=== PATIENT | female | born 1960 | race Caucasian/White ===

== ENCOUNTER 2016-06-04 10:32 | Emergency (ER) | payer MEDICARE, MEDICAID ==
[2016-06-04 12:05] VITALS: BP 120/65
--- NOTE | 2016-06-04 12:10 | UC ---
Throat Pain/Nasal Rhett HPI - HPI Summary HPI Summary: 3-4 days of cough and nasal drainage, no fevers, aching usual self - History of Current Complaint Chief Complaint: UCRespiratory Stated Complaint: SINUS,SORE THROAT Time Seen by Provider: 06/04/16 12:02 Hx Obtained From: Patient, Family/Help Desk Assistant Hx Last Menstrual Period: n/a ?: No Onset/Duration: Sudden Onset, Lasting Days - 3-4, Still Present Severity: Moderate Associated Signs & Symptoms: Positive: Nasal Discharge - Allergies/Home Medications Allergies/Adverse Reactions: Allergies Allergy/AdvReac Type Severity Reaction Status Date / Time No Known Allergies Allergy Verified 06/04/16 11:57 Home Medications: Home Medications Acetaminophen TAB* [Tylenol TAB*] 650 mg PO Q4H PRN 06/04/16 [History Confirmed 06/04/16] GuaiFENesin DM* [Robitussin DM*] 10 ml PO Q6H PRN 06/04/16 [History Confirmed ] LoraTADine TAB(NF) [Claritin TAB(NF)] 10 mg PO DAILY PRN 06/04/16 [History Confirmed 06/04/16] Pseudoephedrine TAB* [Sudafed TAB*] 30 mg PO Q4H PRN 06/04/16 [History Confirmed 06/04/16] Trospium Chloride [Trospium Chloride ER] 60 mg PO DAILY 06/04/16 [History Confirmed 06/04/16] busPIRone TAB* [Buspar TAB *] 15 mg PO TID 06/04/16 [History Confirmed 06/04/16] PMH/Surg Hx/FS Hx/Imm Hx Previously Healthy: No - deveolpment Disabilities Endocrine History Of: Reports: Thyroid Disease - Hyperparathyroidism, Nodules - Surgical History Surgical History: None Surgery Procedure, Year, and Place: ADRENAL GLAND REMOVED - Family History Known Family History: Positive: Other - Pt is unable to convey family history due to level cognitive function. - Social History Occupation: Disabled Lives: Assisted Living Alcohol Use: None Substance Use Type: None Smoking Status (MU): Never Smoked Tobacco - Immunization History Most Recent Influenza Vaccination: 02/05/16 Most Recent Tetanus Shot: 02/04/08 Review of Systems Constitutional: Negative Skin: Negative Eyes: Negative ENT: Nasal Discharge Respiratory: Cough Cardiovascular: Negative Gastrointestinal: Negative Genitourinary: Negative Motor: Negative Neurovascular: Negative Musculoskeletal: Negative Neurological: Negative Psychological: Negative All Other Systems Reviewed And Are Negative: Yes Physical Exam Triage Information Reviewed: Yes Appearance: No Pain Distress, Well-Nourished, Ill-Appearing - mild Vital Signs: Initial Vital Signs Temp 98.9 F 06/04/16 11:50 Pulse 69 06/04/16 11:50 Resp 16 06/04/16 11:50 BP 120/65 06/04/16 11:50 Pulse Ox 100 06/04/16 11:50 Vital Signs Reviewed: Yes Eye Exam: Normal Eyes: Positive: Conjunctiva Clear ENT Exam: Normal ENT: Positive: Normal ENT inspection, Hearing grossly normal, Pharynx normal, Nasal congestion, Nasal drainage, TMs normal. Negative: Pharyngeal erythema, Tonsillar swelling, Tonsillar exudate, Trismus, Muffled/hoarse voice Neck exam: Normal Neck: Positive: Supple, Nontender, No Lymphadenopathy Respiratory Exam: Normal Respiratory: Positive: Chest non-tender, Lungs clear, Normal breath sounds, No respiratory distress, No accessory muscle use Cardiovascular Exam: Normal Cardiovascular: Positive: RRR, No Murmur, Pulses Normal, Brisk Capillary Refill Musculoskeletal Exam: Normal Musculoskeletal: Positive: Strength Intact, ROM Intact, No Edema Neurological Exam: Normal Neurological: Positive: Alert, Muscle Tone Normal Psychological Exam: Normal Psychological: Positive: Normal Response To Family Skin Exam: Normal Throat Pain/Nasal Course/Dx - Course Assessment/Plan: flonase , tessalon, increase fluids, use otc mucinex and sudafed follow with pcp - Differential Dx/Diagnosis Differential Diagnosis/HQI/PQRI: Otitis Media, Pharyngitis, Sinusitis, URI Provider Diagnoses: Rhinosinusitis Discharge - Discharge Plan Condition: Stable Disposition: HOME Prescriptions: Benzonatate CAP* [Tessalon CAP*] 100 mg PO TID PRN #25 cap PRN Reason: Cough Fluticasone NASAL SPRAY 50MCG* [Flonase NASAL SPRAY 50MCG*] 2 spray BOTH NARES DAILY #1 btl Patient Education Materials: Cold Symptoms (ED), How to Use Nasal [place] (ED) Referrals: Maria Borja MD [Primary Care Provider] - If Needed
== END 2016-06-04 12:22 | disposition home or self-care (01) ==
LOC: UCCORT 10:32
DX: J32.9 Chronic sinusitis, unspecified (principal); R41.841 Cognitive communication deficit
CPT/HCPCS: 99212; G0463

== ENCOUNTER 2017-02-12 15:35 | Emergency (ER) | payer MEDICARE, MEDICAID ==
--- NOTE | 2017-02-12 18:48 | UC ---
Eye Complaint HPI - HPI Summary HPI Summary: 56 YEAR OLD FEMALE PRESENTS WITH COMPLAINS OF PAINFUL RIGHT EYE AND SORE THROAT. - History of Current Complaint Stated Complaint: EYE COMPLANT Time Seen by Provider: 02/12/17 18:48 Hx Obtained From: Patient Hx Last Menstrual Period: n/a Onset/Duration: Sudden Onset Severity Initially: Moderate Severity Currently: Moderate Pain Scale Used: 0-10 Numeric - 3 - Allergies/Home Medications Allergies/Adverse Reactions: Allergies Allergy/AdvReac Type Severity Reaction Status Date / Time No Known Allergies Allergy Verified 02/12/17 18:49 PMH/Surg Hx/FS Hx/Imm Hx Previously Healthy: Yes - Surgical History Surgical History: None Surgery Procedure, Year, and Place: ADRENAL GLAND REMOVED - Family History Known Family History: Positive: Other - Pt is unable to convey family history due to level cognitive function. - Social History Alcohol Use: None Substance Use Type: None Smoking Status (MU): Never Smoked Tobacco - Immunization History Most Recent Influenza Vaccination: 02/05/16 Most Recent Tetanus Shot: 02/04/08 Review of Systems Constitutional: Negative Skin: Negative Eyes: Negative ENT: Negative Respiratory: Negative Cardiovascular: Negative Gastrointestinal: Negative Genitourinary: Negative Motor: Negative Neurovascular: Negative Musculoskeletal: Negative Neurological: Negative Psychological: Negative All Other Systems Reviewed And Are Negative: Yes Physical Exam Triage Information Reviewed: Yes Vital Signs Reviewed: Yes Eye Exam: Normal ENT Exam: Normal Dental Exam: Normal Neck exam: Normal Neck: Positive: 1 Respiratory Exam: Normal Cardiovascular Exam: Normal Abdominal Exam: Normal Musculoskeletal Exam: Normal Neurological Exam: Normal Psychological Exam: Normal Skin Exam: Normal Eye Complaint Course/Dx - Differential Dx/Diagnosis Provider Diagnoses: right conjunctivitis. allergic rhinitis. sinusitis Discharge - Discharge Plan Condition: Stable Disposition: HOME Prescriptions: Amoxicillin PO (*) [Amoxicillin 500 MG CAP*] 500 mg PO TID #30 cap LoraTADine TAB(NF) [Claritin 10 MG TAB(NF)] 10 mg PO DAILY #30 tab Tobramycin/Dexameth OPTH.SUSP* [Tobradex 0.3-0.1%*] 1 drop RIGHT EYE Q6H #1 btl Patient Education Materials: Allergic Rhinitis (ED), Conjunctivitis (ED) Referrals: Maria Borja MD [Primary Care Provider] -
[2017-02-12 18:49] VITALS: BP 113/65
== END 2017-02-12 19:26 | disposition home or self-care (01) ==
LOC: UCCORT 15:35
DX: H10.31 Unspecified acute conjunctivitis, right eye (principal); J30.9 Allergic rhinitis, unspecified; J32.9 Chronic sinusitis, unspecified
CPT/HCPCS: 99212; G0463

== ENCOUNTER 2017-06-19 19:29 | Emergency (ER) | payer MEDICARE, MEDICAID ==
[2017-06-19 21:27] VITALS: BP 111/70
--- NOTE | 2017-06-19 22:14 | UC ---
Nausea/Vomiting/Diarrhea HPI - HPI Summary HPI Summary: 56 y/o female PMHX of OCD presents to the urgent care accompany by bakery worker conveyor line Shilpa Cox c/o 2 episode of vomiting and 3 episodes of diarrhea. Pt states diarrhea started last night w/ mild abdominal cramping pain relief w/ watery diarrhea. She was well and ate normally today last meal was at 1700pm. then she developed vomiting at 1930 and then another episode at 2030pm before coming here. Social workers states she ate a soup w/ rice. Pt is drinking fluids and urinating well. Denies fever, abdominal pain, SOB, chest pain, URI symptoms, blood in the stool or hematoemesis. Pt also denies eating outside, recent travel or taking ABxs. - History of Current Complaint Chief Complaint: UCAbdominalPain Stated Complaint: DIARRHEA, VOMITING Time Seen by Provider: 06/19/17 21:54 Hx Obtained From: Patient, Family/Fringe Knotter - bakery worker conveyor line Mrs Chava Cox Hx Last Menstrual Period: n/a ?: No Onset/Duration: Gradual Onset, Lasting Days - 1 day, Still Present, Worse Since - tonight Timing: Intermittent Episodes Lasting: Severity Initially: Mild Severity Currently: Mild Pain Intensity: 5 Pain Scale Used: 0-10 Numeric Location: Epigastric - caramping abdominal pain relief w/ diarrhea Character: Cramping Aggravating Factor(s): Food Alleviating Factor(s): Vomiting, Bowel Movement Vomiting Frequency: Every 1-2 hours - 2 episodes Nausea/Vomiting Duration: 0-12 hours Vomiting Characteristics: Nonbilious Diarrhea Presence: Yes Diarrhea Frequency: Every 3-4 hours Diarrhea Duration: 0-12 hours Diarrhea Characteristics: Watery - Risk Factors Influenza Risk Factors: Negative Surgical Obstruction Risk Factor(s): Negative - Allergies/Home Medications Allergies/Adverse Reactions: Allergies Allergy/AdvReac Type Severity Reaction Status Date / Time No Known Allergies Allergy Verified 06/19/17 21:27 Home Medications: Home Medications Topiramate TAB(*) [Topamax 25 MG tab] 25 mg PO BID 06/19/17 [History Confirmed 06/19/17] PMH/Surg Hx/FS Hx/Imm Hx Previously Healthy: Yes Endocrine History: Hypothyroidism Other Endocrine History: adrenal tumor GI/ History: Kidney Stones Other GI/ History: Over reactive bladder Psychological History: Anxiety, Depression Other Psychological History: OCD - Surgical History Surgical History: None Surgery Procedure, Year, and Place: ADRENAL GLAND REMOVED - Family History Known Family History: Positive: Unknown Family History: Pt is unable to convey family history due to level cognitive function. - Social History Occupation: Employed Part-time Lives: Residential Alcohol Use: None Substance Use Type: None Smoking Status (MU): Never Smoked Tobacco - Immunization History Most Recent Influenza Vaccination: 02/05/16 Most Recent Tetanus Shot: 02/04/08 Vaccination Up to Date: Yes Review of Systems Constitutional: Negative Skin: Negative Eyes: Negative ENT: Negative Respiratory: Negative Cardiovascular: Negative Gastrointestinal: Abdominal Pain - epigastric abdominal cramping pain, Vomiting , Diarrhea, Nausea Genitourinary: Negative Motor: Negative Neurovascular: Negative Musculoskeletal: Negative Neurological: Negative Psychological: Negative Is Patient Immunocompromised?: No All Other Systems Reviewed And Are Negative: Yes Physical Exam - Summary Physical Exam Summary: Vital Signs Reviewed: Yes General:Patient is a well developed and nourished female who is sitting comfortable in the examining table. Patient is not in any acute respiratory distress. Eyes: Positive: Conjunctiva Clear - PERRLA, EOMI, fundi grossly normal ENT: Positive: Normal ENT inspection, Hearing grossly normal, Pharynx normal, RT external ear canal impacted w/ cerumen unable to visualize TM, LF external canal clear, LF TM WNL. Neck: Positive: Supple, Nontender, No Lymphadenopathy Respiratory: Positive: Chest non-tender, Lungs clear, Normal breath sounds, No respiratory distress Cardiovascular: Positive: RRR,S1 and S2 present, No Murmur, Pulses Normal, Brisk Capillary Refill Abdomen Description: Positive: Nontender, Other: - Abd: Flat with no distention. No surface trauma, scars, incisions. hyperactive bowel sounds present in all four quadrants. No tenderness, guarding, rigidity to palpation. No masses palpated, no pulsation in epigastric area. No organomegaly. Negative Russell signs. No periumbilical tenderness. No rebound in the lower quadrants. NT over McBurneys point. Good femoral pulses bilaterally. No hernia noted. No CVAT bilaterally Musculoskeletal: Positive: Strength Intact, ROM Intact, No Edema,FROM in all major joints, no edema, no cyanosis or clubbing. Neuro: Alert and oriented x 3. No acute neurological deficits. Speech is normal. Psychological: WNL Skin: Dry and warm Triage Information Reviewed: Yes Vital Signs: Initial Vital Signs Temp 98.4 F 06/19/17 21:23 Pulse 66 06/19/17 21:23 Resp 16 06/19/17 21:23 BP 111/70 06/19/17 21:23 Pulse Ox 100 06/19/17 21:23 Naus/Vom/Diarrhea Course/Dx - Course Course Of Treatment: 56 y/o female PMHX of OCD presents to the urgent care accompany by bakery worker conveyor line Shilpa Cox c/o 2 episode of vomiting and 3 episodes of diarrhea. Pt states diarrhea started last night w/ mild abdominal cramping pain relief w/ watery diarrhea. She was well and ate normally today last meal was at 1700pm. then she developed vomiting at 1930 and then another episode at 2030pm before coming here. Social workers states she ate a soup w/ rice. Pt is drinking fluids and urinating well. Denies fever, abdominal pain, SOB, chest pain, URI symptoms, blood in the stool or hematoemesis. Pt also denies eating outside, recent travel or taking ABxs.Hx obtained. PE: WNL. Pt w/ probably a viral gastroenteritis and RT exteranal ear canal impacted w/ cerumen. Pt given Zofran PO at the clinic for votiming. Pt tolerated well medication and was dispense 1 tab home in case needed overnight. Pt Rx same medication.Also Rx Debrox otic drops to soften cerumen. Pt and bakery worker conveyor line advised to increase fluid intake, eat soft meals, rest. However if symptoms worsen and abdominal pain develops to go Immediately to the ER for further management. D/C instructions explained . crop or grain farmworker and PT understood and agreed w/ plan of care. Pt left the clinic ambulating, A&OX3 - Differential Dx/Diagnosis Differential Diagnoses - Female: Appendicitis, Gerd, Gastroenteritis (Viral), Gastroenteritis (Bacterial), Vomiting, Diarrhea, Colitis, Peptic Ulcer Disease, Gastritis Provider Diagnoses: 1- Viral gastroenteriritis. 2-Acute nausea and vomiting. 3 -Diarrhea. 4-RT external ear canal w/ cerumen impaction Condition At Discharge: Stable Discharge - Sign-Out/Discharge Documenting (check all that apply): Discharge - Discharge Plan Condition: Stable Disposition: HOME Prescriptions: Carbamide Peroxide 6.5% OTIC* [DEBROX 6.5% Otic*] 5 drop RIGHT EAR BID #1 bottle Ondansetron ODT TAB* [Zofran 4 MG Odt TAB*] 4 mg PO Q6H PRN #10 tab.odt PRN Reason: Vomiting Patient Education Materials: Gastroenteritis (ED), Acute Nausea and Vomiting ( ED) Referrals: Maria Borja MD [Primary Care Provider] - 2 Days Additional Instructions: 1-Please take Zofran PO as directed to alleviate vomiting. Increase fluid intake w/ Gatorade and Pedialyte OTC 1 spoon q4hrs prn. Eat soft meals, nothing heavy 2- If Pt develops fever or abdominal pain w/ recurrent episodes of diarrhea and vomiting please take PT to the ER, otherwise f/u with your PCP if diarrhea not resolving in 2-3 days 3- Please apply Debrox otic drops as directed to soften cerumen of Rt external ear canal - Billing Disposition and Condition Condition: STABLE Disposition: HOME
[2017-06-19] MEDS ORDERED: Ondansetron ODT TAB* 4 MG PO ONE (22:15)
[2017-06-19] MEDS ORDERED: Ondansetron ODT TAB* 4 MG ONE (22:25)
== END 2017-06-19 22:49 | disposition home or self-care (01) ==
LOC: UCCORT 19:29
DX: A08.4 Viral intestinal infection, unspecified (principal); R11.2 Nausea with vomiting, unspecified; R19.7 Diarrhea, unspecified
CPT/HCPCS: 99212; A9270-GY; G0463

== ENCOUNTER 2018-06-26 15:37 | Emergency (ER) | payer MEDICARE, MEDICAID ==
--- OUTSIDE RECORDS SUMMARY | 2018-06-26 16:45 | XMS REPORT | Continuity of Care Document ---
:1960 External Reference #:[id number] Author Name Matt Melo M.D. Address [address] [facility] [address] [place] [address] Care Team Providers Name Role Phone Arianne Garcia MD Care Team Information Technology Professional Unavailable Arianne Garcia MD Primary Care Physician Unavailable Payers Date Identification Numbers Payment Provider Subscriber Policy Number: [id number] Medicare Brianda Pete PayID: [id number] [address] [place] [address] Policy Number: [id number] Medicaid Brianda Pete PayID: [id number] [address] [place] [address] Advance Directives Description No Information Available Problems Date Description Provider Status Onset: 02/09/2011 Neutropenia Annemarie Mejía M.D. Active Onset: 02/09/2011 Mental retardation Annemarie Mejía M.D. Active Onset: 08/19/2014 Hyperparathyroidism Annemarie Mejía M.D. Active Onset: 06/29/2017 Adult health examination Maria Borja M.D. Active Onset: 06/29/2017 Screening mammography Maria Borja M.D. Active Onset: 06/29/2017 Screening for malignant neoplasm of Maria Borja M.D. Active cervix Onset: 06/29/2017 Screening for cardiovascular system Maria Borja M.D. Active disease Onset: 06/29/2017 Atopic dermatitis Maria Borja M.D. Active Onset: 06/29/2017 Immunization Maria Borja M.D. Active Onset: 08/02/2017 Allergic rhinitis due to pollen Tanya Rouse MD, PHD Active Onset: 08/02/2017 Asthma without status asthmaticus Tanya Rouse MD, PHD Active Onset: 08/02/2017 Cough Tanya Rouse MD, PHD Active Onset: 08/02/2017 Dyspnea Tanya Rouse MD, PHD Active Onset: 08/02/2017 Impacted cerumen Tanya Rouse MD, PHD Active Onset: 08/02/2017 Cementum caries Tanya Rouse MD, PHD Active Onset: 08/02/2017 Acute sinusitis Tanya Rouse MD, PHD Active Onset: 01/22/2018 Taking medication Tanya Rouse MD, PHD Active Onset: 01/22/2018 Developmental language disorder Tanya Rouse MD, PHD Active Onset: 01/22/2018 Needs moderate assistance Tanya Rouse MD, PHD Active Onset: 01/22/[address] [facility] Tnaya Rouse MD, PHD Active of occurrence of the external cause Onset: 02/15/2018 Acute vaginitis Tanya Rouse MD, PHD Active Onset: 02/15/2018 Dysuria Tanya Rouse MD, PHD Active Onset: 02/15/2018 Increased frequency of urination Tanya Rouse MD, PHD Active Onset: 04/09/2018 Anxiety state Arianne Garcia MD Active Onset: 04/09/2018 Primary hyperparathyroidism Arianne Garcia MD Active Onset: 04/09/2018 Major depressive disorder, single Arianne Garcia MD Active episode, unspecified Onset: 06/11/2018 Kidney stone Matt Melo M.D. Active Onset: 06/11/2018 Nocturia Matt Melo M.D. Active Onset: 06/11/2018 Acquired renal cystic disease Matt Melo M.D. Active Family History Date Family Member(s) Observation Comments Father due to Pancreatic Cancer () Mother due to Kidney Disease () First Sister Diabetes First Sister due to Stroke () First Sister Chronic Obstructive Pulmonary Disease (COPD) Social History Type Date Description Comments Sex Unknown Lives With [facility] [employer] Occupation Currently Working Relations Liaison Occupation Disabled Hand Dominance Right-handed ETOH Use Never used alcohol Tobacco Use Start: Unknown Patient has never smoked Smoking Status Reviewed: 06/03/18 Patient has never smoked Allergies, Adverse Reactions, Alerts Description No Known Drug Allergies Medications Medication Date Status Form Strength Qnty SIG Indications Ordering Provider Hydrocortisone 04/09 Active Cream 1% apply to Jose, affected MD Arianne area three times a day prn [id number] 03/04 Active Chewtabs 1mg 90uni 1 tab by ts mouth every Tanya, day andria HARTLEY, PHD Triple 10/16 Active Ointment 5-400-500 42gm apply to Jose, 0 affected MD Arianne area 2-4x daily as needed Maalox Max 08/14 Active Suspension 400-400-4 355ml 5-15 Huong, 0mg/5ML milliliters Maria, every 6 M.D. hours for upset stomach Claritin 08/14 Active Capsules 10mg 30cap 1 by mouth Gagen, s every day as Puja needed e, MS, allergy [employer], symptoms CNM Nebulizer 08/02 Active Kit 1unit Reusable kit R06.02 Padma, Kit/Tubing/Mout /2017 s 1 twice a Tanya, hpiece day short of , PHD breath. r06.02 Xylimelts 08/02 Active Disk 500mg 90uni 1 each by K02.7 ts mouth three Tanya, times a day , PHD after meals Folic Acid 07/26 Active Tablets 1mg 90tab 1 tab PO Q , s Daily Frederic Sifuentes Tab-A-Apoorva 04/23 Active Tablets 30tab 1 by mouth Padma, s every day MD Tanya, PHD Acetaminophen Active Tablets 325mg 30tab i-ii by Huong, s mouth every Maria, 6 hours as M.D. needed Robitussin DM Active Syrup 100-10mg/ 355ml 5mL prn Huong, 5ML cough Frederic Sifuentes Kaopectate Active Suspension 262mg/15M 240ml 2 tablespoon , L by mouth Maria, after each M.D. loose bm as needed Miralax Active Powder 30uni mix one F80.9 [place] ts capefull Tanya, 17gms in 8 , PHD oz of fluid daily Z74.1 R19.5 Topiramate Active Tab 25mg 1 by mouth Unknown three times a day Trospium Chloride Active Caps ER 24HR 60mg 1 by mouth Unknown ER every day Albuterol Sulfate Active Nebulizer 1.25mg/ 1 vial inhaled Unknown 3ML every 4 hours as needed for shortness of breath and or wheezing Fluvoxamine ER Active Capsules 150mg 1 by mouth at Unknown bedtime Vitamin D3 Active Capsules 5000Uni 30c Take 1 Capsule [place], t aps By Mouth Daily MD Tanya, PHD Vitamin D3 03/07/2018 - Hx Capsules 5000Uni 30c 1 by mouth [place], Maximum Strength 04/03/2018 t aps every day MD Tanya, PHD Keflex 02/15/2018 - Hx Capsules 500mg 20c 1 cap by mouth R3 [place], 02/25/2018 aps twice a day 0. Tanya, 0 , PHD Diflucan 02/15/2018 - Hx Tablets 150mg 2ta 1 tab oral for N7 [place], 04/09/2018 bs yeast. repeat 6. Tanya, in 1 week. 0 , PHD Triple Antibiotic 10/16/2017 - Hx Ointment 1Tu apply to [facility], 10/16/2017 be affected area Maria, 2-4x daily prn M.D. Triple Antbiotic 08/14/2017 - Hx Ointment 1Tu apply to area [facility], 10/16/2017 be 2-4x a day as Maria, needed M.D. Albuterol Sulfate 08/14/2017 - Hx Nebulizer 1.25mg/ 75u 1 vial inhaled R0 [facility], 10/24/2017 3ML nit every 4 hours 6. Maria, s as needed 02 M.D. wheezing or sob Mucinex 08/02/2017 - Hx Tablets ER 600mg 30t 1 tab by mouth J3 [place], 08/14/2017 12HR abs twice a day 0. Tanya, congestion 1 , PHD take with lots of fluids 12 Hour Nasal 08/02/2017 - Hx Solution 0.05% 15m 2 sprays J0 Padma, Relief [place] 08/05/2017 l intranasal 1. Tanya, twice a day 90 , PHD painful pressure Albuterol Sulfate 08/02/2017 - Hx Nebulizer (2.5mg/ 75m 1 vial by R0 Padma, 08/14/2017 3ML) l nebulizer 6. Tanya, 0.083% twice a day 02 , PHD when congested Benadryl Allergy 08/02/2017 - Hx Capsules 25mg 30c 1 cap by mouth J3 [place], 08/14/2017 aps at bedtime as 0. Tanya, needed in 1 , PHD allergy season Vitamin B12 07/26/2017 - Hx Tablets ER 1000mcg 90t 1 tab by mouth Huong, 10/24/2017 abs every daily Frederic Sifuentes Vitamin D3 1000Iu 04/19/2017 - Hx 60u 2 by mouth [place], Softgel (SD) 03/07/2018 nit rhys Martínez MD, PHD Neosporin 03/08/2017 - Hx Ointment 3.5-400 14. apply to area [facility], [facility] 06/29/2017 -5000 200 qid prn castillo Davis DO Loratadine 02/13/2017 - Hx Tablets 10mg 30t Take 1 Tablet J3 Huong, 08/03/2017 abs By Mouth Daily 0. Maria, as Needed For 9 M.D. Allergy Symptoms Vitamin D3 1000Iu 09/19/2016 - Hx 30u Take 1 Capsule Huong, Softgel (SD) 11/01/2016 nit By Mouth Daily rhys Sifuentes M.D. Clotrimazole 06/23/2016 - Hx Cream 1% 30g apply to B3 [facility], 02/13/2017 m affected area 5. Maria, twice a day 4 M.D. Vitamin D3 High 04/23/2015 - Hx Capsules 1000Uni 30c 1 by mouth Huong, Potency 06/29/2017 t aps every day Frederic Sifuentes [facility] Vitamin D3 12/26/2010 - Hx Capsules 1000Uni 30c 1 by mouth Mejía , 06/22/2015 t aps every day MD Annemarie Fluoxetine HCL - Hx Capsules 10mg 30c 1 po qd Ayanna, 05/07/2015 aps MD Annemarie Buspirone HCL - Hx Tablets 30mg 60t 1 PO bid Ayanna, 04/09/2018 abs MD Annemarie Trospium Chloride - Hx Caps ER 24HR 60mg 30c 1 by mouth Huong , ER 10/24/2017 aps every day Frederic Sifuentes Sulfamethoxazole/ - Hx Tablets 800-160 14t 1 by mouth Unknown Trimethoprim DS Unknown mg abs twice a day X 10 Days Cephalexin - Hx Capsules 500mg 14c 1 cap by mouth Unknown Unknown aps twice a day X 10 Days Fluoxetine HCL - Hx Capsules 20mg 1 by mouth Ayanna, 06/22/2015 every day Frederic Sharpe Fluoxetine HCL - Hx Capsules 40mg 1 by mouth Unknown 06/29/2017 every day Claritin - Hx Capsules 10mg 30c 1 by mouth Huong, 08/14/2017 aps every day for Maria, 30 days and M.D. then prn allergy symptoms Maalox/Mylanta - Hx 1 tsp po q4h Unknown 08/14/2017 prn c/o stomach upset Milk Of Magnesia - Hx Suspension 400mg/5 1 tbsp as Unknown 08/14/2017 ML needed q4h prn for constipation Amoxicilin - Hx take one 3x Unknown 03/08/2017 daily Neosporin - Hx apply to open Unknown 08/14/2017 area four times a day as needed Sudafed - Hx Tablets 30mg 30t 1 tabs by Huong, 08/14/2017 abs mouth every 4 Maria, hours as M.D. needed cold symptoms Hydrocortisone - Hx Cream 1% 28. apply to skin Huong, 08/14/2017 35u rash sparingly Maria, nit three times a M.D. s day as needed Tablets - Hx Tablets ER 1000mcg 1 by mouth Unknown Unknown every day Bismuth - Hx Chewtabs 262mg 1 tab four Unknown Subsalicylate Unknown times a day x 14 days Hydrocortisone - Hx Cream 1% apply to skin Unknown Plus 04/09/2018 as needed. Vitamin B-12 - Hx Liquid 1000mcg 450 15 milliliters Padma, 03/04/2018 /15ML ml by mouth every magdiel Martínez MD, PHD Fluvoxamine - Hx Tablets 100mg 1 tablet at Unknown Maleate 04/09/2018 bedtime 1 Immunizations CPT Code Status Date Vaccine Lot # [id number] Given 01/16/2018 Influenza,Unspecified 96053 Given 06/29/2017 Pneumovax Injection [id number] 02112 Given 06/29/2017 Tdap injection [id number] 81488 Given 12/13/2016 Influenza Virus Vaccine, Quadrivalent, Slit Virus, Im Use 34751 Given 12/13/2016 Influenza Virus Vaccine, Quadrivalent, Slit Virus, Im Use 01593 Given 06/23/2016 Pneumococcal Conjugate Vaccine 13 Valent For [id number] Intramuscular Use 39865 Given 02/05/2016 Influenza Virus Vaccine Split Virus Use For Individual 3Yr Older 36508 Given 02/01/2015 Influenza Virus Vaccine, Split Virus, 6-35 Months Age Intramuscul 37819 Given 04/06/2014 flu vaccination 44162 Given 12/11/2011 flu vaccination 94292 Given 11/30/2008 flu vaccination 64956 Given 02/04/2008 Tdap injection 72584 Given 02/04/2008 flu vaccination Vital Signs Date Vital Result Comment 06/11/2018 9:07am BP Systolic 112 mmHg BP Diastolic 73 mmHg Body Temperature 97.7 F Heart Rate 73 /min Respiratory Rate 18 /min Weight 159.25 lb O2 % BldC Oximetry 99 % Pain Level 0 05/29/2018 8:48am BP Systolic 133 mmHg BP Diastolic 80 mmHg Body Temperature 99.5 F Heart Rate 69 /min Respiratory Rate 16 /min Weight 162.00 lb O2 % BldC Oximetry 95 % Pain Level 0 04/17/2018 2:50pm BP Systolic Sitting Left Arm 106 mmHg BP Diastolic Sitting Left Arm 69 mmHg Body Temperature 98.1 F Heart Rate 63 /min Height 62.6 inches 5'2.60" Weight 163.00 lb BMI (Body Mass Index) 29.2 kg/m2 BSA (Body Surface Area) 1.76 m2 [place] body weight in kilograms 51 kg O2 % BldC Oximetry 100 % 04/09/2018 8:43am BP Systolic Sitting Right Arm 115 mmHg BP Diastolic Sitting Right Arm 71 mmHg Body Temperature 98.6 F Heart Rate 66 /min Respiratory Rate 16 /min Height 62.6 inches 5'2.60" Weight 161.00 lb BMI (Body Mass Index) 28.9 kg/m2 BSA (Body Surface Area) 1.76 m2 [place] body weight in kilograms 51 kg O2 % BldC Oximetry 97 % 02/15/2018 2:04pm BP Systolic 105 mmHg BP Diastolic 67 mmHg Body Temperature 98.3 F Heart Rate 59 /min Respiratory Rate 16 /min Height 62.6 inches 5'2.60" Weight 161.00 lb BMI (Body Mass Index) 28.9 kg/m2 BSA (Body Surface Area) 1.76 m2 [place] body weight in kilograms 51 kg O2 % BldC Oximetry 98 % 01/22/2018 1:23pm BP Systolic 103 mmHg BP Diastolic 65 mmHg Body Temperature 97.8 F Heart Rate 60 /min Respiratory Rate 18 /min Height 62.6 inches 5'2.60" Weight 155.00 lb BMI (Body Mass Index) 27.8 kg/m2 BSA (Body Surface Area) 1.73 m2 [place] body weight in kilograms 51 kg O2 % BldC Oximetry 99 % Ora 11/19/2017 8:48am BP Systolic 113 mmHg BP Diastolic 70 mmHg Body Temperature 97.6 F Heart Rate 60 /min Respiratory Rate 18 /min Height 62.6 inches 5'2.60" Weight 153.00 lb BMI (Body Mass Index) 27.4 kg/m2 BSA (Body Surface Area) 1.72 m2 [place] body weight in kilograms 51 kg O2 % BldC Oximetry 99 % Ra Pain Level 0 11/16/2017 9:15am BP Systolic 112 mmHg BP Diastolic 70 mmHg Body Temperature 96.8 F Heart Rate 60 /min Respiratory Rate 18 /min Height 62.6 inches 5'2.60" Weight 154.00 lb BMI (Body Mass Index) 27.6 kg/m2 BSA (Body Surface Area) 1.72 m2 [place] body weight in kilograms 51 kg O2 % BldC Oximetry 98 % 10/24/2017 2:58pm BP Systolic Sitting Right Arm 106 mmHg BP Diastolic Sitting Right Arm 62 mmHg Body Temperature 97.5 F Height 62.6 inches 5'2.60" Weight 155.25 lb BMI (Body Mass Index) 27.9 kg/m2 BSA (Body Surface Area) 1.73 m2 [place] body weight in kilograms 51 kg 09/19/2017 3:48pm BP Systolic 110 mmHg BP Diastolic 64 mmHg Body Temperature 97.2 F Heart Rate 62 /min Respiratory Rate 16 /min Height 62.5 inches 5'2.50" Weight 157.00 lb BMI (Body Mass Index) 28.3 kg/m2 BSA (Body Surface Area) 1.74 m2 [place] body weight in kilograms 51 kg O2 % BldC Oximetry 99 % 08/14/2017 1:43pm BP Systolic Sitting Left Arm 102 mmHg BP Diastolic Sitting Left Arm 74 mmHg Heart Rate 58 /min Respiratory Rate 14 /min Weight 158.50 lb O2 Saturation Level with Exercise 99 % 08/02/2017 1:49pm BP Systolic 108 mmHg BP Diastolic 66 mmHg Height 62.5 inches 5'2.50" Weight 157.00 lb BMI (Body Mass Index) 28.3 kg/m2 BSA (Body Surface Area) 1.74 m2 [place] body weight in kilograms 51 kg 07/09/2017 8:39am BP Systolic 99 mmHg BP Diastolic 62 mmHg Body Temperature 98.2 F Heart Rate 54 /min Respiratory Rate 16 /min Height 62.5 inches 5'2.50" Weight 158.50 lb BMI (Body Mass Index) 28.5 kg/m2 BSA (Body Surface Area) 1.74 m2 [place] body weight in kilograms 51 kg O2 % BldC Oximetry 99 % On R/A Pain Level 0 06/29/2017 9:54am BP Systolic 102 mmHg BP Diastolic 60 mmHg Body Temperature 96.8 F Heart Rate 50 /min Height 62.5 inches 5'2.50" Weight 163.00 lb BMI (Body Mass Index) 29.3 kg/m2 BSA (Body Surface Area) 1.76 m2 [place] body weight in kilograms 51 kg O2 % BldC Oximetry 97 % 03/08/2017 9:27am BP Systolic 110 mmHg BP Diastolic 68 mmHg Body Temperature 98.4 F Heart Rate 58 /min Weight 164.12 lb O2 % BldC Oximetry 98 % 02/13/2017 3:07pm BP Systolic Sitting Right Arm 110 mmHg BP Diastolic Sitting Right Arm 72 mmHg Body Temperature 98.3 F Heart Rate 60 /min Weight 167.25 lb O2 % BldC Oximetry 98 % 11/06/2016 8:58am BP Systolic 122 mmHg BP Diastolic 69 mmHg Body Temperature 96.9 F Heart Rate 54 /min Weight 173.12 lb O2 % BldC Oximetry 100 % 11/01/2016 4:49pm BP Systolic Sitting Left Arm 122 mmHg BP Diastolic Sitting Left Arm 76 mmHg Body Temperature 98.0 F Height 62 inches 5'2" Weight 173.00 lb BMI (Body Mass Index) 31.6 kg/m2 BSA (Body Surface Area) 1.80 m2 [place] body weight in kilograms 50 kg 06/23/2016 9:03am BP Systolic Sitting Left Arm 124 mmHg BP Diastolic Sitting Left Arm 80 mmHg Body Temperature 98.0 F Heart Rate 64 /min Respiratory Rate 16 /min Height 62 inches 5'2" Weight 184.25 lb BMI (Body Mass Index) 33.7 kg/m2 BSA (Body Surface Area) 1.85 m2 [place] body weight in kilograms 50 kg 05/08/2016 11:03am BP Systolic 125 mmHg BP Diastolic 75 mmHg Body Temperature 97.4 F Heart Rate 57 /min Respiratory Rate 20 /min Weight 191.25 lb O2 % BldC Oximetry 985 % 03/02/2016 3:10pm BP Systolic 135 mmHg BP Diastolic 80 mmHg Body Temperature 98.1 F Heart Rate 63 /min Respiratory Rate 20 /min Weight 195.38 lb O2 % BldC Oximetry 96 % 06/22/2015 1:40pm BP Systolic Sitting Right Arm 118 mmHg BP Diastolic Sitting Right Arm 78 mmHg Body Temperature 98.1 F Heart Rate 60 /min Respiratory Rate 19 /min Weight 188.00 lb 05/07/2015 10:14am BP Systolic Sitting Left Arm 114 mmHg BP Diastolic Sitting Left Arm 68 mmHg Heart Rate 60 /min Respiratory Rate 20 /min Height 62 inches 5'2" Weight 174.00 lb BMI (Body Mass Index) 31.8 kg/m2 BSA (Body Surface Area) 1.80 m2 08/19/2014 2:47pm BP Systolic Sitting Left Arm 114 mmHg BP Diastolic Sitting Left Arm 66 mmHg Heart Rate 64 /min Respiratory Rate 18 /min Height 62 inches 5'2" Weight 171.00 lb BMI (Body Mass Index) 31.3 kg/m2 BSA (Body Surface Area) 1.79 m2 05/05/2014 9:05am BP Systolic 118 mmHg BP Diastolic 70 mmHg Heart Rate 64 /min Respiratory Rate 18 /min Height 62 inches 5'2" Weight 169.00 lb BSA (Body Surface Area) 1.78 m2 04/06/2014 1:13pm BP Systolic 118 mmHg BP Diastolic 50 mmHg Heart Rate 64 /min Respiratory Rate 18 /min Height 62 inches 5'2" Weight 174.00 lb 09/02/2013 9:02am BP Systolic 116 mmHg BP Diastolic 70 mmHg Heart Rate 74 /min Height 62 inches 5'2" Weight 167.00 lb 03/03/2013 9:04am BP Systolic 104 mmHg BP Diastolic 58 mmHg Heart Rate 72 /min Respiratory Rate 18 /min Height 62 inches 5'2" Weight 173.00 lb 04/09/2012 11:42am BP Systolic 104 mmHg BP Diastolic 64 mmHg Body Temperature 98.7 F Heart Rate 68 /min Height 62 inches 5'2" Weight 164.00 lb 02/27/2012 9:01am BP Systolic 116 mmHg BP Diastolic 72 mmHg Heart Rate 68 /min Respiratory Rate 18 /min Height 62 inches 5'2" Weight 169.00 lb 07/17/2011 2:55pm BP Systolic 104 mmHg BP Diastolic 58 mmHg Height 62 inches 5'2" Weight 154.00 lb 04/12/2011 8:59am BP Systolic 100 mmHg BP Diastolic 66 mmHg Heart Rate 60 /min Height 62 inches 5'2" Weight 154.00 lb 02/09/2011 11:28am BP Systolic 110 mmHg BP Diastolic 60 mmHg Heart Rate 61 /min Respiratory Rate 18 /min Height 62 inches 5'2" Weight 152.00 lb Results Test Date Facility Test Result H/L Range Note Urine Dipstick 06/11/2018 [facility] Color yellow Yellow Ua Clarity clear Clear Ua Leuko neg Negative Ua Nitrite neg Negative Ua Urobilinogen 0.2 0.2 - 1.0 E.U./dL Ua Protein neg Negative Ua PH 6.5 6.5-7.5 Ua Blood neg Negative Ua Specific [place] 1.015 1.010-1.030 Ua Ketones neg Negative Ua Bilirubin neg Negative Ua Glucose neg Negative CBS W/Automated Diff 05/15/2018 [facility] White Blood 3.9 K/uL N 3.1-10.[address] [place] [address] [phone] Red Blood Count 4.41 M/uL N 3.90-5.40 Hemoglobin 13.6 gm/dL N 11.6-15.8 Hematocrit 41.6 % N 36.0-46.1 Mean Cell Volume 94.3 fl N 80.9-99.0 Mean Corpuscular HGB 30.8 pg N 25.9-32.7 Mean Corpuscular HGB Conc 32.7 g/dL N 30.8-34.3 Platelet Count 172 K/uL N 155-360 Red Cell Distri Width SD 44.5 fl N 36-47 Red Cell Distri Width %CV 13.2 % N 11.7-14.4 Mean Platelet Volume 13.1 fL High 8.9-12.4 Neut% 33.6 % Low 40.4-72.8 Lymph % 29.6 % N 20.0-42.0 [place] % 16.2 % High 4.3-13.2 Eo% 19.6 % High 0.0-6.6 Bas% 1.0 % N 0.0-1.1 Neut# 1.30 K/uL Low 1.8-7.0 Lymph # 1.15 K/uL N 1.0-4.0 [place] # 0.63 K/uL N 0.3-0.9 Eos # 0.76 K/uL High 0.0-0.5 Baso # 0.04 K/uL N 0.0-0.1 Affirm 04/17/2018 [facility] Trichomonas Negative [Negative] [address] [place] [address] [phone] Gardnerella vaginalis Negative [Negative] Natalie species Negative [Negative] 3 Genital Culture W/ 02/15/2018 [facility] Gram Stain GRAM STAIN [place] 4, [address] <SEE NOTE> [place] [address] [phone] Gram Stain FEW GR POS. BACI <SEE NOTE> 6 Gram Stain FEW GRAM VARIABL <SEE NOTE> 7 Gram Stain RARE CURVED GRAM <SEE NOTE> 8 Gram Stain MODERATE GRAM PO <SEE NOTE> 9 Gram Stain RARE WHITE BLOOD <SEE NOTE> 10 Genital Culture GENITAL LELE Ua RFX Micro & Culture 02/15/2018 [facility] Urine Color YELLOW Yellow II [address] [place] [address] [phone] Urine Clarity SL CLOUDY Clear Urine Glucose - Dipstick NEGATIVE mg/dL Negative Urine Bilirubin - Dipstick NEGATIVE Negative Urine Ketone NEGATIVE mg/dL Negative Urine Specific [place] <=1.005 Low 1.010-1.030 Urine Blood TRACE Negative Urine PH 6.5 N 6.5-7.5 Urine Protein - Dipstick NEGATIVE mg/dL Negative Urine Urobilinogen - Dipstick 0.2 E.U./dL N 0.2-1.0 Urine Nitrite - Dipstick NEGATIVE Negative Urine Leuk Esterase LARGE Abnormal Negative Urine RBC 0-2 rbc/hpf 0-2 Urine WBC > 50 wbc/hpf High 0-7 Urine Epithelial Cells VERY FEW /lpf None Seen Urine Bacteria VERY FEW None Seen Urine Culture 02/15/2018 [facility] Urine Culture MIXED URETHRAL F [address] [facility] <SEE NOTE> [place], [place] [id number] [phone] Quantity 10,000 - 100,000 <SEE NOTE> 12 Comprehensive Metabolic 11/05/2017 [facility] Glucose 75 mg/dL N 74-106 13 Panel [address] [place] [address] [phone] BUN 30 mg/dL High 7-18 Creatinine 1.2 mg/dL N 0.6-1.3 Glom Filtration Rate, Estimate 49 mL/min >60 If 59 mL/min >60 14 BUN/Creat 25.0 ratio Sodium 142 mmol/L N 136-145 Potassium 4.3 mmol/L N 3.5-5.1 Chloride 109 mmol/L High 98-107 Carbon Dioxide 25 mmol/L N 21-32 Anion Gap 8 mEq/L N 8-16 Calcium 9.0 mg/dL N 8.5-10.1 Total Protein 7.5 g/dL N 6.4-8.2 Albumin 3.7 g/dL N 3.4-5.0 Globulin 3.8 g/dL N 1.9-4.3 Alb/Glob 1.0 ratio Bilirubin,Total 0.4 mg/dL N 0.2-1.0 Sgot/Ast 25 U/L N 15-37 SGPT/Alt 26 U/L N 12-78 Alkaline Phosphatase 58 U/L N 45-117 Vitamin B12 And 11/05/2017 [facility] Vitamin B12 867 pg/mL N 193-986 Folate [address] [place] [address] [phone] Folic Acid > 20.0 ng/mL High 3.1-17.5 Iron-Tibc-%Sat 11/05/2017 [facility] Serum Iron 71 g/dL N 50-[address] [place] [address] [phone] Total Iron Binding Capacity 238 g/dL Low 250-450 Transferrin %Saturation 30 % N 12-57 CBS W/Automated Diff 11/05/2017 [facility] White Blood 3.5 K/uL N 3.1-10.[address] [place] [address] [phone] Red Blood Count 4.29 M/uL N 3.90-5.40 Hemoglobin 12.8 gm/dL N 11.6-15.8 Hematocrit 39.9 % N 36.0-46.1 Mean Cell Volume 93.0 fl N 80.9-99.0 Mean Corpuscular HGB 29.8 pg N 25.9-32.7 Mean Corpuscular HGB Conc 32.1 g/dL N 30.8-34.3 Platelet Count 160 K/uL N 155-360 Red Cell Distri Width SD 43.8 fl N 3-47 Red Cell Distri Width %CV 13.2 % N 11.7-14.4 Mean Platelet Volume 12.9 fL High 8.9-12.4 Neut% 37.3 % Low 40.4-72.8 Lymph % 37.6 % N 20.0-42.0 [place] % 17.3 % High 4.3-13.2 Eo% 5.5 % N 0.0-6.6 Bas% 2.3 % High 0.0-1.1 Neut# 1.29 K/uL Low 1.8-7.0 Lymph # 1.30 K/uL N 1.0-4.0 [place] # 0.60 K/uL N 0.3-0.9 Eos # 0.19 K/uL N 0.0-0.5 Baso # 0.08 K/uL N 0.0-0.1 CBS W/Automated 07/02/2017 [facility] White Blood 2.8 K/uL Low 3.1-10.7 [address] [place] [address] [phone] Red Blood Count 4.23 M/uL N 3.90-5.40 Hemoglobin 12.8 gm/dL N 11.6-15.8 Hematocrit 39.5 % N 36.0-46.1 Mean Cell Volume 93.4 fl N 80.9-99.0 Mean Corpuscular HGB 30.3 pg N 25.9-32.7 Mean Corpuscular HGB Conc 32.4 g/dL N 30.8-34.3 Platelet Count 148 K/uL Low 155-360 Red Cell Distri Width SD 44.9 fl N 3-47 Red Cell Distri Width %CV 13.6 % N 11.7-14.4 Mean Platelet Volume 13.6 fL High 8.9-12.4 Neut% 23.9 % Low 40.4-72.8 Lymph % 39.3 % N 20.0-42.0 [place] % 21.8 % High 4.3-13.2 Eo% 11.8 % High 0.0-6.6 Bas% 3.2 % High 0.0-1.1 Neut# 0.67 K/uL Low 1.8-7.0 Lymph # 1.10 K/uL N 1.0-4.0 [place] # 0.61 K/uL N 0.3-0.9 Eos # 0.33 K/uL N 0.0-0.5 Baso # 0.09 K/uL N 0.0-0.1 Vitamin B12 And 07/02/2017 [facility] Vitamin B12 548 pg/mL N 193-986 Folate [address] [place], [place] [id number] [phone] Folic Acid > 20.0 ng/mL High 3.1-17.5 Iron-Tibc-%Sat 07/02/2017 [facility] Serum Iron 53 g/dL N 50-170 [address] [place], [place] [id number] [phone] Total Iron Binding Capacity 234 g/dL Low 250-450 Transferrin %Saturation 23 % N 12-57 Laboratory 07/02/2017 [facility] Anti-Nuclear Negative Negative 16 test finding [address] Antibodies AU/[place] [address] Direct [phone] Slide Review 07/02/2017 [facility] Slide Review DIFF ORDERED [address] [place] [address] [phone] Laboratory 07/02/2017 [facility] Path Review: <pending> 17 test finding [address] [place] [address] [phone] Differential-W 07/02/2017 [facility] Total Cells 100 #CELLS BC Confirm [address] [place] [address] [phone] Band% 2 % N 0-8 Neutrophils% 34 % N 33-73 Lymph% 36 % N 20-42 Atypical Lymph% 1 % N 0-7 Monocyte% 17 % High 0-10 Eosinophil% 10 % High 0-5 Platelet Estimate NORMAL RBC Morphology NORMAL Comprehensive Metabolic 06/29/2017 [facility] Glucose 85 mg/dL N 74-106 18 Panel [address] [place] [address] [phone] BUN 21 mg/dL High 7-18 Creatinine 1.2 mg/dL N 0.6-1.3 Glom Filtration Rate, Estimate 49 mL/min >60 If 59 mL/min >60 19 BUN/Creat 17.5 ratio Sodium 138 mmol/L N 136-145 Potassium 4.2 mmol/L N 3.5-5.1 Chloride 106 mmol/L N 98-107 Carbon Dioxide 27 mmol/L N 21-32 Anion Gap 5 mEq/L Low 8-16 Calcium 9.2 mg/dL N 8.5-10.1 Total Protein 7.7 g/dL N 6.4-8.2 Albumin 3.7 g/dL N 3.4-5.0 Globulin 4.0 g/dL N 1.9-4.3 Alb/Glob 0.9 ratio Bilirubin,Total 0.4 mg/dL N 0.2-1.0 Sgot/Ast 27 U/L N 15-37 SGPT/Alt 23 U/L N 12-78 Alkaline Phosphatase 61 U/L N 45-117 Reflex add FT3? Y Reflex add FT4? Y LDL Cholesterol Profile 06/29/2017 [facility] Cholesterol 124 mg/dL <200 20 [address] [place] [address] [phone] Triglycerides 99 mg/dL <150 21 HDL Cholesterol 41 mg/dL >40 22 LDL-Cholesterol 63 mg/dL < 100 23 Reflex add FT3? Y Reflex add FT4? Y TSH Reflex FT4 06/29/2017 [facility] Thyroid Stim 1.07 uIU/mL N 0.30-4.20 And/Or FT3 [address] [place] [address] [phone] Reflex add FT3? Y Reflex add FT4? Y CBS W/Automated 03/02/2017 [facility] White Blood 2.8 K/uL Low 3.1-10.[address] [place] [address] [phone] Red Blood Count 4.27 M/uL N 3.90-5.40 Hemoglobin 12.9 gm/dL N 11.6-15.8 Hematocrit 39.5 % N 36.0-46.1 Mean Cell Volume 92.5 fl N 80.9-99.0 Mean Corpuscular HGB 30.2 pg N 25.9-32.7 Mean Corpuscular HGB Conc 32.7 g/dL N 30.8-34.3 Platelet Count 182 K/uL N 150-400 Red Cell Distri Width SD 43.3 fl N 3-47 Red Cell Distri Width %CV 13.2 % N 11.7-14.4 Mean Platelet Volume 13.4 fL High 8.9-12.4 Neut% 40.1 % Low 40.4-72.8 Lymph % 34.1 % N 20.0-42.0 [place] % 17.2 % High 4.3-13.2 Eo% 5.7 % N 0.0-6.6 Bas% 2.9 % High 0.0-1.1 Neut# 1.12 K/uL Low 1.8-7.0 Lymph # 0.95 K/uL Low 1.0-4.0 [place] # 0.48 K/uL N 0.3-0.9 Eos # 0.16 K/uL N 0.0-0.5 Baso # 0.08 K/uL N 0.0-0.1 Slide Review 03/02/2017 [facility] Slide Review (SEE NOTE) 24 [address] [place] [address] [phone] Laboratory test 03/02/2017 [facility] Path Review: <pending> finding [address] [place] [address] [phone] CBS W/Automated 02/13/2017 [facility] White Blood 3.2 K/uL N 3.1-10. Diff [address] Count 7 [place], [place] [id number] [phone] Red Blood Count 4.24 M/uL N 3.90-5.40 Hemoglobin 12.7 gm/dL N 11.6-15.8 Hematocrit 38.7 % N 36.0-46.1 Mean Cell Volume 91.3 fl N 80.9-99.0 Mean Corpuscular HGB 30.0 pg N 25.9-32.7 Mean Corpuscular HGB Conc 32.8 g/dL N 30.8-34.3 Platelet Count 226 K/uL N 150-400 Red Cell Distri Width SD 41.3 fl N 3-47 Red Cell Distri Width %CV 12.7 % N 11.7-14.4 Mean Platelet Volume 12.3 fL N 8.9-12.4 25 Neut# 0.98 K/uL Low 1.8-7.0 Lymph # 1.37 K/uL N 1.0-4.0 [place] # 0.61 K/uL N 0.3-0.9 Eos # 0.23 K/uL N 0.0-0.5 Baso # 0.05 K/uL N 0.0-0.1 Slide Review 02/13/2017 [facility] Slide Review DIFF ORDERED [address] [place] [address] [phone] Differential-WBC 02/13/2017 [facility] Total Cells 100 #CELLS Confirm [address] Counted [place] [id number] [phone] Metamyelocyte% 1 % High -0 Band% 2 % N 0-8 Neutrophils% 27 % Low 33-73 Lymph% 45 % High 20-42 Atypical Lymph% 1 % N 0-7 Monocyte% 14 % High 0-10 Eosinophil% 7 % High 0-5 Basophil% 3 % High 0-2 Platelet Estimate NORMAL Anisocytosis 0-1+ Ovalocytes 0-1+ Toxic Granulation 0-1+ Differential Comment FEW LRG PLTS SEE <SEE NOTE> 26 CBS W/Automated 10/30/2016 [facility] White Blood 2.4 K/uL Low 3.1-10.7 [address] Count [place], [place] [id number] [phone] Red Blood Count 4.46 M/uL N 3.90-5.40 Hemoglobin 13.5 gm/dL N 11.6-15.8 Hematocrit 41.0 % N 36.0-46.1 Mean Cell Volume 91.9 fl N 80.9-99.0 Mean Corpuscular HGB 30.3 pg N 25.9-32.7 Mean Corpuscular HGB Conc 32.9 g/dL N 30.8-34.3 Platelet Count 155 K/uL N 150-400 Red Cell Distri Width SD 44.0 fl N 3-47 Red Cell Distri Width %CV 13.3 % N 11.7-14.4 Mean Platelet Volume 13.3 fL High 8.9-12.4 28 Neut# 0.57 K/uL Low 1.8-7.0 Lymph # 0.86 K/uL Low 1.0-4.0 [place] # 0.43 K/uL N 0.3-0.9 Eos # 0.42 K/uL N 0.0-0.5 Baso # 0.07 K/uL N 0.0-0.1 Comprehensive Metabolic 10/30/2016 [facility] Glucose 61 mg/dL Low 74-106 Panel [address] [place] [address] [phone] BUN 18 mg/dL N 7-18 Creatinine 1.1 mg/dL N 0.6-1.3 Glom Filtration Rate, Estimate 54 mL/min >60 If >60 mL/min >60 29 BUN/Creat 16.3 ratio Sodium 138 mmol/L N 136-145 Potassium 4.2 mmol/L N 3.5-5.1 Chloride 104 mmol/L N 98-107 Carbon Dioxide 28 mmol/L N 21-32 Anion Gap 6 mEq/L Low 8-16 Calcium 8.9 mg/dL N 8.5-10.1 Total Protein 7.2 g/dL N 6.4-8.2 Albumin 3.5 g/dL N 3.4-5.0 Globulin 3.7 g/dL N 1.9-4.3 Alb/Glob 0.9 ratio Bilirubin,Total 0.5 mg/dL N 0.2-1.0 Sgot/Ast 25 U/L N 15-37 SGPT/Alt 24 U/L N 12-78 Alkaline Phosphatase 48 U/L N 45-117 Reticulocyte 10/30/2016 [facility] Retic % 0.8 % N 0.5-1.8 Count,Automated [address] [place] [address] [phone] Iron-Tibc-%Sat 10/30/2016 [facility] Serum Iron 70 g/dL N 50-170 [address] [place], [place] [id number] [phone] Total Iron Binding Capacity 209 g/dL Low 250-450 Transferrin %Saturation 33 % N 12-57 Vitamin B12 And 10/30/2016 [facility] Vitamin B12 600 pg/mL N 193-986 Folate [address] [place], [place] [id number] [phone] Folic Acid 50.7 ng/mL High 3.1-17.5 Slide Review 10/30/2016 [facility] Slide Review DIFF ORDERED [address] [place] [address] [phone] Path Review: 10/30/2016 [facility] Path Review: INDICATED,SLIDE 30 [address] <SEE NOTE> [place] [address] [phone] Differential-WBC 10/30/2016 [facility] Total Cells 100 #CELLS Confirm [address] [place] [address] [phone] Neutrophils% 18 % Low 33-73 Lymph% 46 % High 20-42 Atypical Lymph% 4 % N 0-7 Monocyte% 11 % High 0-10 Eosinophil% 18 % High 0-5 Basophil% 3 % High 0-2 Platelet Estimate NORMAL Differential Comment LARGE PLATELETS <SEE NOTE> 31 LDL Cholesterol 06/23/2016 [facility] Cholesterol 133 mg/dL <200 32, 33 Profile [address] [place], [place] [id number] [phone] Triglycerides 70 mg/dL <150 34 HDL Cholesterol 38 mg/dL Low >40 35 LDL-Cholesterol 81 mg/dL < 100 36 Comprehensive Metabolic 06/23/2016 [facility] Glucose 68 mg/dL Low 74-106 Panel [address] [place] [address] [phone] BUN 17 mg/dL N 7-18 Creatinine 1.1 mg/dL N 0.6-1.3 Glom Filtration Rate, Estimate 54 mL/min >60 If >60 mL/min >60 37 BUN/Creat 15.4 ratio Sodium 140 mmol/L N 136-145 Potassium 4.4 mmol/L N 3.5-5.1 Chloride 106 mmol/L N 98-107 Carbon Dioxide 28 mmol/L N 21-32 Anion Gap 6 mEq/L Low 8-16 Calcium 8.7 mg/dL N 8.5-10.1 Total Protein 7.6 g/dL N 6.4-8.2 Albumin 3.6 g/dL N 3.4-5.0 Globulin 4.0 g/dL N 1.9-4.3 Alb/Glob 0.9 ratio Bilirubin,Total 0.4 mg/dL N 0.2-1.0 Sgot/Ast 25 U/L N 15-37 SGPT/Alt 24 U/L N 12-78 Alkaline Phosphatase 56 U/L N 45-117 Laboratory test 06/23/2016 N2N/CCD Import Fit Hemoccult negative finding Hepatitis C 06/23/2016 [facility] Hepatitis C Nonreactive Nonreactive Antibody [address] Antibody [place], [place] [id number] [phone] Signal/Cutoff ratio < 0.02 <0.80 38 Laboratory test 03/02/2016 [facility] Anti-Nuclear Negative N Negative [address] Antibodies AU/[place] [address] Direct [phone] Reticulocyte 03/02/2016 [facility] Retic % 0.9 % N 0.5-1.8 Count,Automated [address] [place], [place] [id number] [phone] Rheumatoid Panel 03/02/2016 [facility] Sedimentation 8 mm/hr N 0-30 ([facility]) [address] Rate [place], [place] [id number] [phone] Hla-B27 Disease Association Negative N . 40 Anti-Nuclear Antibodies Direct <pending> Uric Acid 03/02/2016 [facility] Uric Acid 4.7 mg/dL N 2.6-6.[address] [place], [place] [id number] [phone] Reflex add FT3? N Reflex add FT4? Y Rheumatoid 03/02/2016 [facility] Rheumatoid < 10.0 N 0.0-15.0 Factor Screen [address] Factor Screen IU/[place] [address] [phone] Reflex add FT3? N Reflex add FT4? Y Lyme AB/Western 03/02/2016 [facility] Lyme Total < 0.91 N 0.00-0.90 41 Blot Reflex [address] AB/[place] [address] [phone] Lyme Disease Antibody,QT,Igm <0.80 index N 0.00-0.79 42 C-Reactive 03/02/2016 [facility] C-Reactive < 2.9 N <3.0 Protein,Quant [address] Protein,Quant mg/[place] [address] [phone] Reflex add FT3? N Reflex add FT4? Y Lupus Anticoagulant Reflex 03/02/2016 [facility] PTT-LA 38.7 sec N 0.0-40.6 [address] [place], [place] [id number] [phone] DRVVT 36.2 sec N 0.0-44.0 Note: Comment: N . 43 CBC 03/02/2016 [facility] White Blood Count 2.4 K/uL Low 3.1-10.7 [address] [place] [address] [phone] Red Blood Count 4.49 M/uL N 3.90-5.40 Hemoglobin 13.5 gm/dL N 11.6-15.8 Hematocrit 41.1 % N 36.0-46.1 Mean Cell Volume 91.5 fl N 80.9-99.0 Mean Corpuscular HGB 30.1 pg N 25.9-32.7 Mean Corpuscular HGB Conc 32.8 g/dL N 30.8-34.3 Platelet Count 164 K/uL N 155-360 Red Cell Distri Width %CV 12.9 % N 11.7-14.4 Mean Platelet Volume 12.2 fL N 8.9-12.4 Vitamin B12 And 03/02/2016 [facility] Vitamin B12 791 pg/mL N 193-986 Folate [address] [place] [address] [phone] Folic Acid 63.1 ng/mL High 3.1-17.5 Reflex add FT3? N Reflex add FT4? Y TSH Reflex FT4 03/02/2016 [facility] Thyroid Stim 1.29 uIU/mL N 0.30-4.20 And/Or FT3 [address] [place] [address] [phone] Reflex add FT3? N Reflex add FT4? Y Laboratory 03/02/2016 [facility] Platelet <pending> test finding [address] [place] Function/[place] [address] [phone] Laboratory 03/02/2016 [facility] Path Review: <pending> test finding [address] [place] [address] [phone] Laboratory 06/28/2015 [facility] Urine Culture SEE RESULT 44 test finding [phone] BELOW CBC 05/07/2015 [facility] White Blood Count 2.5 K/uL Low 3. W/Automated [address] 1- [place] [address] 10 [phone] Red Blood Count 4.55 M/uL 3.90-5.40 Hemoglobin 13.9 gm/dL 11.6-15.8 Hematocrit 41.7 % 36.0-46.1 Mean Cell Volume 91.6 fl 80.9-99.0 Mean Corpuscular HGB 30.5 pg 25.9-32.7 Mean Corpuscular HGB Conc 33.3 g/dL 30.8-34.3 Platelet Count 154 K/uL Low 155-360 Red Cell Distri Width SD 42.9 fl 3-47 Red Cell Distri Width %CV 13.0 % 11.7-14.4 Mean Platelet Volume 12.7 fL High 8.9-12.4 Neut% 42.2 % 40.4-72.8 Lymph % 36.4 % 17.0-46.1 [place] % 15.0 % High 4.3-13.2 Eo% 4.0 % 0.0-6.6 Bas% 2.4 % High 0.0-1.1 Neut# 1.07 K/uL Low 1.8-7.0 Lymph # 0.92 K/uL Low 1.8-7.0 [place] # 0.38 K/uL 0.3-0.9 Eos # 0.10 K/uL 0.0-0.5 Baso # 0.06 K/uL 0.0-0.1 Comprehensive Metabolic 05/07/2015 [facility] Glucose 77 mg/dL 74-106 Panel [address] [place], [place] [id number] [phone] BUN 25 mg/dL High 7-18 Creatinine 1.2 mg/dL 0.6-1.3 Glom Filtration Rate, Estimate 49 mL/min >60 If 60 mL/min >60 45 BUN/Creat 20.8 ratio Sodium 137 mmol/L 136-145 Potassium 4.4 mmol/L 3.5-5.1 Chloride 104 mmol/L 98-107 Carbon Dioxide 30 mmol/L 21-32 Anion Gap 3 mEq/L Low 8-16 Calcium 8.7 mg/dL 8.5-10.1 Total Protein 7.7 g/dL 6.4-8.2 Albumin 3.7 g/dL 3.4-5.0 Globulin 4.0 g/dL 1.9-4.3 Alb/Glob 0.9 ratio Bilirubin,Total 0.4 mg/dL 0.2-1.0 Sgot/Ast 23 U/L 15-37 SGPT/Alt 28 U/L 12-78 Alkaline Phosphatase 72 U/L 45-117 Routine Culture W/ Gram 05/05/2014 N2N/CCD Import Aerobic Culture See Note 46 Stain Gram Stain See Note 47 Laboratory test 05/05/2014 N2N/CCD Import Tissue Culture W/ See Note 48 finding Gram Stain Culture Genital & 05/03/2014 N2N/CCD Import Genital Culture (See Note) 49 Sensitivity Laboratory test 05/03/2014 N2N/CCD Import Trichomonas Negative Negative 50 finding vaginalis Rna GC/Chlamydia 05/03/2014 N2N/CCD Import Chlamydia Negative Negative Amplified Rna trachomatis Rna Neisseria gonorrhoeae (GC) Rna Negative Negative 51 Gardnerella/Yeast: 05/03/2014 N2N/CCD Import Gardnerella/Yeast: (See Note) 52 Vaginal Dna Vaginal Dna Herpes Simplex PCR 05/03/2014 N2N/CCD Import HSV 1 PCR Negative Negative HSV 2 PCR Negative Negative 53 Herpes Source Vulva CBC/Manual Differential 04/06/2014 N2N/CCD Import Atypical Lymph% 1 % 0- 7 Band% 3 % 0-8 Basophil% 3 % High 0-2 Eosinophil% 7 % High 0-5 Hematocrit 41.1 % 36.0-46.1 Hemoglobin 13.3 gm/dL 11.6-15.8 Lymph% 39 % 17-56 Mean Cell Volume 93.2 fl 80.9-99.0 Mean Corpuscular HGB 30.2 pg 25.9-32.7 Mean Corpuscular HGB Conc 32.4 g/dL 30.8-34.3 Mean Platelet Volume 12.9 fL High 8.9-12.4 Monocyte% 15 % High 0-10 Neutrophils% 32 % Low 33-73 Platelet Count 208 K/uL 155-360 Platelet Estimate Normal RBC Morphology Normal Red Blood Count 4.41 M/uL 3.90-5.40 Red Cell Distri Width %CV 12.9 % 11.7-14.4 Total Cells Counted 100 #CELLS White Blood Count 3.2 K/uL 3.1-10.7 Comprehensive Metabolic Panel 04/06/2014 N2N/CCD Import Alb/Glob 1.1 ratio Albumin 3.7 g/dL 3.4-5.0 Alkaline Phosphatase 63 U/L 45-117 Anion Gap 12 mEq/L 8-16 BUN 18 mg/dL 7-18 BUN/Creat 16.3 ratio Bilirubin,Total 0.4 mg/dL 0.2-1.0 Calcium 9.6 mg/dL 8.5-10.1 Carbon Dioxide 29 mmol/L 21-32 Chloride 102 mmol/L 98-107 Creatinine 1.1 mg/dL 0.6-1.3 Globulin 3.4 g/dL 1.9-4.3 Glom Filtration Rate, Estimate 55 mL/min >60 Glucose 80 mg/dL 74-106 If >60 mL/min >60 54 Potassium 4.8 mmol/L 3.5-5.1 SGPT/Alt 19 U/L 12-78 Sgot/Ast 19 U/L 15-37 Sodium 138 mmol/L 136-145 Total Protein 7.1 g/dL 6.4-8.2 Laboratory test finding 04/06/2014 N2N/CCD Import Fit Hemocult negative Laboratory test finding 04/06/2014 N2N/CCD Import Cytology Pap See Note 55 Laboratory test finding 03/17/2013 N2N/CCD Import Baso # 0.08 K/uL 0.0- 0.1 Eos # 0.12 K/uL 0.0-0.5 Hematocrit 41.8 % 36.0-46.1 Hemoglobin 13.5 gm/dL 11.6-15.8 Lymph # 1.29 K/uL 0.8-3.4 Mean Cell Volume 93.5 fl 80.9-99.0 Mean Corpuscular HGB 30.2 pg 25.9-32.7 Mean Corpuscular HGB Conc 32.3 g/dL 30.8-34.3 [place] # 0.49 K/uL 0.3-0.9 Neut# 0.66 K/uL Low 1.0-7.0 Platelet Count 138 K/uL Low 155-360 Red Blood Count 4.47 M/uL 3.90-5.40 Red Cell Distri Width %CV 12.9 % 11.7-14.4 Red Cell Distri Width SD 43.0 fl 3-47 White Blood Count 2.6 K/uL Low 3.1-10.7 Differential-WBC Confirm 03/17/2013 N2N/CCD Import Atypical Lymph% 2 % 0 -7 Band% 2 % 0-8 Basophil% 4 % High 0-2 Eosinophil% 4 % 0-5 Lymph% 56 % 17-56 Monocyte% 12 % High 0-10 Neutrophils% 20 % Low 33-73 Platelet Estimate Normal RBC Morphology Normal Total Cells Counted 100 #CELLS Laboratory test 03/03/2013 N2N/CCD Import TSH (Thyroid 2.07 miu/mL 0.34- 5.60 finding Stimulating Horm) Comp Metabolic 03/03/2013 N2N/CCD Import Albumin 4.0 g/dL 3.6-5.4 Panel Albumin/Globulin Ratio 1.6 1-3 Alkaline Phosphatase 48 U/L 30-110 Alt 18 U/L 14-54 Anion Gap 4.0 mmol/L 2-11 Ast 27 U/L 12-42 BUN/Creatinine Ratio 19.0 8-20 Blood Urea Nitrogen 19 mg/dL 6-24 Calcium 9.1 mg/dL 8.1-9.9 Chloride 101 mmol/L 101-111 Co2 Carbon Dioxide 31.0 mmol/L 22-32 Creatinine 1.00 mg/dL 0.50-1.40 Egfr 74.3 >60 56 Egfr Non- 57.8 >60 Globulin 2.5 g/dL 2-4 Glucose 76 mg/dL 70-100 Potassium 4.5 mmol/L 3.5-5.0 Sodium 136 mmol/L 133-145 Total Bilirubin 0.8 mg/dL 0.4-1.5 Total Protein 6.5 g/dL 6.2-8.1 Lipid Profile 03/03/2013 N2N/CCD Import Cholesterol 149 mg/dL Less than (Trig/Chol/HDL) 200 Cholesterol/HDL Ratio 3.6 Average 1-4.44 HDL Cholesterol 42 mg/dL 40-60 57 LDL Cholesterol 90.2 Less Than 100 58 Triglycerides 84 mg/dL 40-200 Urine Microscopic 12/05/2012 N2N/CCD Import Urine Epithelial Very Few None Cells Seen /lpf Urine RBC 0-2 rbc/hpf 0-7 Urine WBC 0-2 wbc/hpf 0-7 Laboratory test finding 03/09/2012 N2N/CCD Import Bas% 2.9 % High 0.0- 1.1 Baso # 0.08 K/uL 0.0-0.1 Eo% 3.3 % 0.0-6.6 Eos # 0.09 K/uL 0.0-0.5 Hematocrit 41.2 % 36.0-46.1 Hemoglobin 13.5 gm/dL 11.6-15.8 Lymph # 1.04 K/uL 0.8-3.4 Lymph % 38.2 % 17.0-46.1 Mean Cell Volume 91.4 fl 80.9-99.0 Mean Corpuscular HGB 29.9 pg 25.9-32.7 Mean Corpuscular HGB Conc 32.8 g/dL 30.8-34.3 Mean Platelet Volume 13.1 fL High 8.9-12.4 [place] # 0.39 K/uL 0.3-0.9 [place] % 14.3 % High 4.3-13.2 Neut# 1.12 K/uL 1.0-7.0 Neut% 41.3 % 40.4-72.8 Platelet Count 151 K/uL Low 155-360 Red Blood Count 4.51 M/uL 3.90-5.40 Red Cell Distri Width %CV 12.7 % 11.7-14.4 Red Cell Distri Width SD 41.5 fl 3-47 White Blood Count 2.7 K/uL Low 3.1-10.7 Laboratory test 07/12/2011 N2N/CCD Import Thyroid Stim 2.19 uIU/mL 0.49- 4.67 finding Hormone Vitamin B12 And 07/12/2011 N2N/CCD Import Folic Acid 67.1 ng/mL High 6.0- 15.4 Folate Vitamin B12 889 pg/mL 311-1180 Laboratory test 07/12/2011 N2N/CCD Import Aot Request See Note 59 finding CBC 07/12/2011 N2N/CCD Import Hematocrit 41.7 % 36.0-46.1 Hemoglobin 13.5 gm/dL 11.6-15.8 Mean Cell Volume 91.9 fl 80.9-99.0 Mean Corpuscular HGB 29.7 pg 25.9-32.7 Mean Corpuscular HGB Conc 32.4 g/dL 30.8-34.3 Mean Platelet Volume 13.2 fL High 8.9-12.4 Platelet Count 126 K/uL Low 155-360 Red Blood Count 4.54 M/uL 3.90-5.40 Red Cell Distri Width %CV 12.7 % 11.7-14.4 White Blood Count 2.3 K/uL Low 3.1-10.7 Basic Metabolic Panel 07/11/2011 N2N/CCD Import Anion Gap 8 mEq/L 8-16 BUN 18 mg/dL 5-23 BUN/Creat 18.0 ratio Calcium 8.7 mg/dL 8.5-10.1 Carbon Dioxide 29 mEq/L 18-29 Chloride 108 mmol/L High 98-107 Creatinine 1.0 mg/dL 0.5-1.4 Glom Filtration Rate, Estimate >60 mL/min >60 Glucose 92 mg/dL 76-115 If >60 mL/min >60 60 Potassium 4.4 mmol/L 3.5-5.1 Sodium 141 mmol/L 136-145 CBC 07/11/2011 N2N/CCD Import Hematocrit 38.7 % 36.0-46.1 Hemoglobin 12.3 gm/dL 11.6-15.8 Mean Cell Volume 92.8 fl 80.9-99.0 Mean Corpuscular HGB 29.5 pg 25.9-32.7 Mean Corpuscular HGB Conc 31.8 g/dL 30.8-34.3 Mean Platelet Volume 13.3 fL High 8.9-12.4 Platelet Count 121 K/uL Low 155-360 Red Blood Count 4.17 M/uL 3.90-5.40 Red Cell Distri Width %CV 12.8 % 11.7-14.4 White Blood Count 2.6 K/uL Low 3.1-10.7 Laboratory test 07/10/2011 N2N/Trib[employer] Import HCG Serum, Qualitative Negative finding Lipase 119 U/L 28-380 Urine HCG (Qualitative) Negative Negative 61 Urine Screen See Note 62 CBS W/Automated Diff 07/10/2011 N2N/CCD Import Bas% 0.3 % 0.0-1.1 Baso # 0.01 K/uL 0.0-0.1 Eo% 1.9 % 0.0-6.6 Eos # 0.06 K/uL 0.0-0.5 Hematocrit 39.6 % 36.0-46.1 Hemoglobin 12.7 gm/dL 11.6-15.8 Lymph # 0.59 K/uL Low 0.8-3.4 Lymph % 18.7 % 17.0-46.1 Mean Cell Volume 91.7 fl 80.9-99.0 Mean Corpuscular HGB 29.4 pg 25.9-32.7 Mean Corpuscular HGB Conc 32.1 g/dL 30.8-34.3 Mean Platelet Volume 13.1 fL High 8.9-12.4 [place] # 0.34 K/uL 0.3-0.9 [place] % 10.8 % 4.3-13.2 Neut# 2.15 K/uL 1.0-7.0 Neut% 68.3 % 40.4-72.8 Platelet Count 140 K/uL Low 155-360 Red Blood Count 4.32 M/uL 3.90-5.40 Red Cell Distri Width %CV 12.5 % 11.7-14.4 Red Cell Distri Width SD 40.9 fl 3-47 White Blood Count 3.2 K/uL 3.1-10.7 Comprehensive Metabolic Panel 07/10/2011 N2N/CCD Import Alb/Glob 1.1 ratio Albumin 3.8 g/dL 3.5-5.0 Alkaline Phosphatase 62 U/L 50-136 Anion Gap 13 mEq/L 8-16 BUN 22 mg/dL 5-23 BUN/Creat 20.0 ratio Bilirubin,Total 0.5 mg/dL 0.2-1.2 Calcium 9.0 mg/dL 8.5-10.1 Carbon Dioxide 25 mEq/L 18-29 Chloride 105 mmol/L 98-107 Creatinine 1.1 mg/dL 0.5-1.4 Globulin 3.4 g/dL 1.9-4.3 Glom Filtration Rate, Estimate 55 mL/min >60 Glucose 95 mg/dL 76-115 If >60 mL/min >60 63 Potassium 4.4 mmol/L 3.5-5.1 SGPT/Alt 35 U/L 30-65 Sgot/Ast 31 U/L 16-40 Sodium 139 mmol/L 136-145 Total Protein 7.2 g/dL 6.3-8.0 Urinalysis With 07/10/2011 Digital [employer] Import Urine Amorph Small Negative Microscopic Sediment Urine Bacteria Very Few None Seen Urine Bilirubin - Dipstick Negative Negative Urine Blood Trace Negative Urine Clarity Clear Clear Urine Color Yellow Yellow Urine Epithelial Cells Few None Seen Urine Glucose - Dipstick Negative mg/dL Negative Urine Ketone Trace mg/dL High Negative Urine Leuk Esterase Trace High Negative Urine Nitrite - Dipstick Negative Negative Urine PH 6.0 Low 6.5-7.5 Urine Protein - Dipstick Negative mg/dL Negative Urine RBC 2-5 rbc/hpf 0-7 Urine Specific [place] 1.010 1.010-1.030 Urine Uric Acid Crystals Few None Seen Urine Urobilinogen - Dipstick 0.2 E.U./dL 0.2-1.0 Urine WBC 0-2 wbc/hpf 0-7 Stool Occult Blood QL 02/13/2011 [facility]/[employer] Import Occult Blood #1 Stool Positive Imm Occult Blood #2 Stool Negative Occult Blood #3 Stool Negative Liver Function Panel 02/09/2011 [facility]/[employer] Import Albumin 4.1 GM/DL 3.6- 5.4 Albumin/Globulin Ratio 1.4 1-3 Alkaline Phosphatase 47 U/L 30-110 Alt (SGPT) 17 U/L 14-54 Ast (Sgot) 24 U/L 12-42 Bilirubin Direct 0.2 mg/dL 0.1-0.5 Bilirubin Total 0.9 mg/dL 0.4-1.5 64 Globulin 2.9 GM/DL 2-4 Indirect Bilirubin 0.7 mg/dL 0.3-1.0 65 Total Protein 7.0 GM/DL 6.2-8.1 Lipid Profile 02/09/2011 [facility] Import Cholesterol 135 mg/dL Less Than 66 (Trig/Chol/HDL) 200 Cholesterol/HDL Ratio 3.75 AVERAGE 1-4.44 High Density Lipoprotein 36 mg/dL Low 40-60 67 Low Density Lipoprotein 88 mg/dL Less Than 100 68 Triglyceride 53 mg/dL 40-200 CBC With Manual Diff 02/09/2011 N2N/CCD Import Absolute Neutrophil Count 0.3 Low Anisocytosis 1+ Basophil 2 % 0-2 Eosinophil 5 % 0-6 Hematocrit 39 % 35-47 Hemoglobin 13.4 g/dL 12.0-16.0 Lymphocyte 69 % High 25-47 Mean Corpuscular HGB Cone 35 g/dL 32-36 Mean Corpuscular Hemoglob 31 pg 27-31 Mean Corpuscular Volume 91 um3 79-97 Mean Platelet Volume 12.0 um3 High 7.4-10.4 Monocyte 10 % 0-13 Platelet Count 139 CUMM Low 150-450 Polysegmented Neutrophil 14 % Low 38-83 Red Cell Count 4.28 CUMM 4.2-5.4 Redcell Distribution WDTH 13 % 10.5-15 White Blood Count 2.4 CUMM Low 4.8-10.8 Basic Metabolic Panel 02/09/2011 N2N/CCD Import Anion Gap 6.0 mmol/L 2- 11 69 BUN 26 mg/dL High 6-24 BUN/Creatinine Ratio 28.9 High 8-20 Calcium 9.5 mg/dL 8.1-9.9 Chloride 103 mmol/L 101-111 Co2 (Carbon Dioxide) 30.0 mmol/L 22-32 Creatinine 0.9 mg/dL 0.50-1.40 Glucose 82 mg/dL 70-100 One Over Creatinine 1.11 Potassium 4.7 mmol/L 3.5-5.0 Sodium 139 mmol/L 135-145 eGFR 84.6 > 60 70 eGFR Non- 65.7 > 60 Laboratory test 02/09/2011 N2N/CCD Import TSH 1.40 MIU/ML 0.34-5.60 finding Laboratory test 02/09/2011 N2N/CCD Import Cytology Pap See Note 71 finding 1 D70.9 2 N76.0 3 Method: BD Affirm VPIII DNA Probe Assay 4 R30.0 R35.0 N76.0 5 GRAM STAIN INDETERMINANT FOR BACTERIAL VAGINOSIS 6 FEW GR POS. BACILLI SUGGESTIVE OF LACTOBACILLUS SP. 7 FEW GRAM VARIABLE COCCOBACILLI 8 RARE CURVED GRAM NEG BACILLI SUGGESTIVE OF MOBILUNCUS 9 MODERATE GRAM POSITIVE COCCI 10 RARE WHITE BLOOD CELLS 11 MIXED URETHRAL LELE 12 10,000 - 100,000 CFU/mL 13 D70.9 14 Note: Persistent reduction for 3 months or more in an eGFR <60 mL/min/1.73 m2 defines CKD. Patients with eGFR values >/=60 mL/min/1.73 m2 may also have CKD if evidence of persistent proteinuria is present. The original MDRD equation for estimated GFR is not valid for patients less than 18 years of age. Additional information may be found at [email or web address]. 15 D70.9 D64.9 16 Performed at: RN - [facility] [address] [id number] [employer] Set Up Operator: Theresa Nava MD, Phone: [phone] CALLED #NEUTS TO IVANIA Elias AT 1113 07/02/17 by [email or web address].GT 18 Z13.6 19 Note: Persistent reduction for 3 months or more in an eGFR <60 mL/min/1.73 m2 defines CKD. Patients with eGFR values >/=60 mL/min/1.73 m2 may also have CKD if evidence of persistent proteinuria is present. The original MDRD equation for estimated GFR is not valid for patients less than 18 years of age. Additional information may be found at [email or web address]. 20 Reference Guidelines*: Desirable: ........... < 200 mg/dL Borderline High: ..... 200-239 mg/dL High: ................ >=240 mg/dL * The National Cholesterol Education Program (NCEP) 21 Reference Guidelines*: Normal: ............. < 150 mg/dL Borderline High: .... 150-199 mg/dL High: ............... 200-499 mg/dL Very High: .......... > 500 mg/dL * Source: National Cholesterol Education Program (NCEP) 22 Reference Guidelines*: Low HDL: ..... < 40 mg/dL Normal: ..... 40-60 mg/dL Desirable: ... > 60 mg/dL *The National Cholesterol Education Program(NCEP) 23 Reference Guidelines*: Optimal:........... <100 mg/dL Near Optimal....... 100-129 mg/dL Borderline High.... 130-159 mg/dL High............... 160-189 mg/dL Very High.......... >=190 mg/dL * Source: National Cholesterol Education Program (NCEP) 24 Instrument flagged sample for slide review. Less than 10% Bands seen, no other immature WBC's seen. RBC morphology essentially normal. Platelet estimate=NORMAL 25 02/13/172136: NEUT% previously reported as: 30.3 L % Amended result called to: [] - 02/13/17 at 213602/[id number]/172136: LYMPH % previously reported as: 42.3 H % Amended result called to: [] - 02/13/17 at 213602/13/172136: MONO % previously reported as: 18.8 H % Amended result called to: [] - 02/13/17 at 213602/13/172136: EO% previously reported as: 7.1 H % Amended result called to: [] - 02/13/17 at 213602/13/172136: BAS% previously reported as: 1.5 H % Amended result called to: [] - 02/13/17 at 2136 26 FEW LRG PLTS SEEN 27 D61.818 28 10/30/16 1412: NEUT% previously reported as: 24.2 L % Amended result called to: [] - 10/30/16 at 14110/30/16 1412: LYMPH % previously reported as: 36.6 % Amended result called to: [] - 10/30/16 at 14110/30/16 1412: MONO % previously reported as: 18.3 H % Amended result called to: [] - 10/30/16 at 141110/30/16 1412: EO% previously reported as: 17.9 H % Amended result called to: [] - 10/30/16 at 14110/30/16 1412: BAS% previously reported as: 3.0 H % Amended result called to: [] - 10/30/16 at 1412 29 Note: Persistent reduction for 3 months or more in an eGFR <60 mL/min/1.73 m2 defines CKD. Patients with eGFR values >/=60 mL/min/1.73 m2 may also have CKD if evidence of persistent proteinuria is present. The original MDRD equation for estimated GFR is not valid for patients less than 18 years of age. Additional information may be found at www.kdoqi.org. 30 INDICATED,SLIDE SENT Hematology Consultation Final Report Case# [id number] Final diagnosis Peripheral blood smear: -Red blood cells are normocytic and normochromic -Platelets are unremarkable. -White blood cells show decreased number of neutrophils. -No blasts are identified. -Clinical correlation is suggested for further evaluation Clinical data: Leukopenia GY 10/31/16 Gross description Peripheral blood smear JODY CALDERON MD, Pathologist Reported 10/31/16 at 1:19 PM, Report electronically signed Performed at: [facility] [id number] [place] [address] 31 LARGE PLATELETS NOTED 32 Z00.01 33 Reference Guidelines*: Desirable: ........... < 200 mg/dL Borderline High: ..... 200-239 mg/dL High: ................ >=240 mg/dL * The National Cholesterol Education Program (NCEP) 34 Reference Guidelines*: Normal: ............. < 150 mg/dL Borderline High: .... 150-199 mg/dL High: ............... 200-499 mg/dL Very High: .......... > 500 mg/dL * Source: National Cholesterol Education Program (NCEP) 35 Reference Guidelines*: Low HDL: ..... < 40 mg/dL Normal: ..... 40-60 mg/dL Desirable: ... > 60 mg/dL *The National Cholesterol Education Program(NCEP) 36 Reference Guidelines*: Optimal:........... <100 mg/dL Near Optimal....... 100-129 mg/dL Borderline High.... 130-159 mg/dL High............... 160-189 mg/dL Very High.......... >=190 mg/dL * Source: National Cholesterol Education Program (NCEP) 37 Note: Persistent reduction for 3 months or more in an eGFR <60 mL/min/1.73 m2 defines CKD. Patients with eGFR values >/=60 mL/min/1.73 m2 may also have CKD if evidence of persistent proteinuria is present. The original MDRD equation for estimated GFR is not valid for patients less than 18 years of age. Additional information may be found at www.kdoqi.org. 38 Antibodies to HCV not detected; does not exclude early acute HCV infection. 39 D61.818 40 HLA-B*27 Negative HLA allele interpretation for all loci based on IMGT/HLA database version 3.21.0 HLA Lab CLIA ID Number [id number] This test was performed using PCR (Polymerase Chain Reaction)/SSOP (Sequence Specific Oligonucleotide Probes) technique. SBT (Sequence Based Typing) and/or SSP (Sequence Specific Primers) may be used as supplemental methods when necessary. Please contact HLA Customer Service at if you have any questions. Director of HLA Laboratory Dr Carter Chambers, PhD 41 Negative <0.91 Equivocal 0.91 - 1.09 Positive >1.09 42 Negative <0.80 Equivocal 0.80 - 1.19 Positive >1.19 IgM levels may peak at 3-6 weeks post infection, then gradually decline. Performed at: - [address] [id number] [employer]illing Machine Set Up Operator: Bhupinder Farah MD, Phone: [phone] Performed at: [facility] [address] [id number] [employer] Set Up Operator: Theresa Nava MD, Phone: [phone] Performed at: [address] [place] [id number] [employer] Machine Set Up Operator: Carter Chambers PhD, Phone: [phone] 43 No lupus anticoagulant was detected. 44 SEE RESULT BELOW Name: BRIANDA PETE : [address]: Elvi Iglesias MD Acct: [id number] Unit: [id number] AGE: 54 Location: [facility] Re06/28/15 SEX: F Status: DEP ER SPEC: [id number] FERDINAND: 06/28/15-[address] [facility] [address]: Elvi Iglesias MD REQ: [id number] RECD: 06/29/15-1107 STATUS: IVANA MOSQUERA DR: Annemarie Mejía MD [facility] _ SOURCE: URINE SPDESC: ORDERED: Urine Culture Procedure Result Reported Site Urine Culture Final 06/30/15- 1036 ML No growth of clinically significant organisms * ML - MAIN LAB (PSC1) . END OF REPORT * ML=Testing performed at Main Lab DEPARTMENT OF PATHOLOGY, [address] [place] [address] Serafin Shukla M.D. Director [facility] # [id number] 45 Note: Persistent reduction for 3 months or more in an eGFR <60 mL/min/1.73 m2 defines CKD. Patients with eGFR values >/=60 mL/min/1.73 m2 may also have CKD if evidence of persistent proteinuria is present. The original MDRD equation for estimated GFR is not valid for patients less than 18 years of age. Additional information may be found at www.kdoqi.org. 46 CULTURE SUGGESTS A MIXTURE OF GRAM NEGATIVE AND GRAM POSITIVE ORGANISMS. PLEASE RESUBMIT IF CLINICALLY INDICATED. HOLDING ISOLATE IN MICROBIOLOGY LAB. PLEASE CALL [phone] IF FULL ID/OR SUSCEPTIBILITY DESIRED. 47 GRAM STAIN ! FEW WHITE BLOOD CELLS ! FEW GRAM POSITIVE COCCI ! FEW GRAM NEGATIVE BACILLI 48 05/05/14 LAB.TOW ONLY ROUTINE CULTURE SWAB SENT 49 RUN DATE: 05/06/14 [facility] LIVE PAGE 1 RUN TIME: [address] [place] [address] Specimen Inquiry ----- Name: BRIANDA PETE : [address]: Shilpa Mercado Acct: [id number] Unit: [id number] AGE: 53 Location: [facility] Re05/03/14 SEX: F Status: DEP ER ----- SPEC: [id number] FERDINAND: 05/03/[address] [facility] [address]: Shilpa Chatman DO REQ: [id number] RECD: 05/04/14 STATUS: IVANA MOSQUERA DR: Annemarie Mejía MD _ SOURCE: VAGINAL SPDESC: ORDERED: Genital Culture ----- Procedure Result Verified Site ----- Genital Culture Final 05/06/14-0959 ML Organism 1 NORMAL LELE Quantity 1+ Routine genital cultures do not include selective agar for Neisseria gonorrhoeae. Molecular testing offers better test sensitivity and therefore is the preferred test methodology for identifying this organism. ----- END OF REPORT * ML=Testing performed at Main Lab DEPARTMENT OF PATHOLOGY, [facility] [employer] [place], [place] [address] Serafin Shukla M.D. Director [facility] # [id number] 50 Endocervical Endocervical 51 Female urine specimens have been self-validated by [facility] and have been granted conditional assay approval by [facility]. 52 RUN DATE: 05/04/14 [facility] LIVE PAGE 1 RUN TIME: [address] [facility] [place], [place] [address] Specimen Inquiry ----- Name: BRIANDA PETE : [address]: Shilpa Mercado Acct: [id number] Unit: [id number] AGE: 53 Location: [facility] Re05/03/14 SEX: F Status: DEP ER ----- SPEC: [id number] FERDINAND: 05/03/[address] [facility] [address]: Shilpa Chatman DO REQ: [id number] RECD: 05/04/141202 STATUS: IVANA MOSQUERA DR: Annemarie Mejía MD _ SOURCE: VAGINAL SPDESC: ORDERED: Wilbert,Yeast DNA ----- Procedure Result Verified Site ----- Gardnerella/Yeast: Vaginal DNA Final 05/04/14-1413 ML Organism 1 Negative Gardnerella Organism 2 Negative Natalie The presence of G. vaginalis , although suggestive, is not diagnostic for bacterial vaginosis. Results should be interpreted in conjuction with other clinical and laboratory data available. Women with vaginal discharge should be evaluated for risk factors of cervicitis and pelvic inflammatory disease, toxic shock syndrome (S.aureus), and if present, evaluated for organisms not included in this assay such as N. gonorrhoeae, C. trachomatis, Mobiluncus, Mycoplasma and/or Prevotella. Mixed infections may occur. The performance of this test on patient specimens collected during or immediately after antimicrobial therapy is unknown. The presence or absence of Natalie species, or G. vaginalis cannot be used as a test for therapeutic success or failure. ----- END OF REPORT * ML=Testing performed at Main Lab DEPARTMENT OF PATHOLOGY, [address] [place] [address] Serafin Shukla M.D. Director [facility] # [id number] 53 ADDITIONAL INFORMATION Analyte Specific Reagent: This test was developed and its performance characteristics determined by [facility]. It has not been cleared or approved by the U.S. Food and Drug Administration. Test Performed by: [facility] - [address] [address] Elevated Motorman: José Manuel Hammonds M.D. 54 Note: Persistent reduction for 3 months or more in an eGFR <60 mL/min/1.73 m2 defines CKD. Patients with eGFR values >/=60 mL/min/1.73 m2 may also have CKD if evidence of persistent proteinuria is present. The original MDRD equation for estimated GFR is not valid for patients less than 18 years of age. Additional information may be found at www.kdoqi.org. 55 Cytology Laboratory [address] [place] [address], [address] [place] [address] CYTOLOGY REPORT Name: Brianda Pete : 1960 (Age: 53) Sex: F Location: [facility] Med. Rec. # [id number] Date Collected: 04/06/2014 Billing #: [id number] Date Received: 04/06/2014 Requisition # [id number] Physician(s): ANNEMARIE MEJÍA MD Source of Specimen: ENDOCERVICAL/THIN PREP Clinical Information: Date of Last Menstrual Period: Unknown Interpretation: NEGATIVE FOR INTRAEPITHELIAL LESION OR MALIGNANCY. Specimen Adequacy: SATISFACTORY FOR EVALUATION. Additional Findings: ENDOCERVICAL/TRANSFORMATION ZONE PRESENT. dave Electronic Signature NEHEMIAH Kimble (ASCP) Reported: 04/08/2014 [facility] [employer] [facility] ICD-9 Code(s) V72.31 56 Because ethnic data is not always readily available, this report includes an eGFR for both -Americans and non- Americans. The National Kidney Disease Education Program (NKDEP) does not endorse the use of the MDRD equation for patients that are not between the ages of 18 and 70, are , have extremes of body size, muscle mass, or nutritional status, or are non- or non-. According to the National Kidney Foundation, irrespective of diagnosis, the stage of the disease is based on the level of kidney function: Stage Description GFR(mL/min/1.73 m(2)) 1 Kidney damage with normal or decreased GFR 90 2 Kidney damage with mild decrease in GFR 60- 89 3 Moderate decrease in GFR 30-59 4 Severe decrease in GFR 15-29 5 Kidney failure <15 (or dialysis) 57 HDL Interpretation: Undesirable: High Risk: Less than 40 mg/dL Desirable: Low Risk: Greater than 60 mg/dL 58 LDL Interpretation: Low Risk Optimal Level: LDL Less than 100 mg/dL Near or Above Optimal: LDL 100-129 mg/dL Borderline High Risk: LDL 130-159 mg/dL High Risk : LDL 160-189 mg/dL Very High Risk: LDL Greater than 189 mg/dL 59 Unable to add tests Tests: TSH,B12,FOLATE Instructions: 60 Note: Persistent reduction for 3 months or more in an eGFR <60 mL/min/1.73 m2 defines CKD. Patients with eGFR values >/=60 mL/min/1.73 m2 may also have CKD if evidence of persistent proteinuria is present. The original MDRD equation for estimated GFR is not valid for patients less than 18 years of age. Additional information may be found at www.kdoqi.org. 61 FIRST MORNING SPECIMENS GENERALLY CONTAIN THE HIGHEST CONCENTRATION OF HCG AND ARE RECOMMENDED FOR EARLY DETECTION OF . 62 07/10/11 LAB.TOW Deleted by Reflex Group [facility] 63 Note: Persistent reduction for 3 months or more in an eGFR <60 mL/min/1.73 m2 defines CKD. Patients with eGFR values >/=60 mL/min/1.73 m2 may also have CKD if evidence of persistent proteinuria is present. The original MDRD equation for estimated GFR is not valid for patients less than 18 years of age. Additional information may be found at www.kdoqi.org. 64 A metabolite of Naproxen, O-desmethylnaproxen, has been shown to interfere with the Jendrassik-Lyndsey method for measuring total bilirubin. Samples from patients who have taken Naproxen have shown spurious elevation in total bilirubin levels. 65 Please note updated reference range, effective 10/21/09 66 CHOLESTEROL INTERPRETATION: Desirable: Less than 200 MG/DL Borderline-High Risk: 200-239 MG/DL High-Risk: 240 MG/DL and over 67 HDL INTERPRETATION: Undesirable: High Risk: Less than 40 MG/DL Desirable: Low Risk: Greater than 60 MG/DL 68 LDL INTERPRETATION: Low Risk Optimal Level: LDL Less than 100 MG/DL Near or Above Optimal: LDL 100-129 MG/DL Borderline High Risk: LDL 130-159 MG/DL High Risk : LDL 160-189 MG/DL Very High Risk: LDL Greater than 189 MG/DL 69 Anion gap measurement may be of limited value in the presence of any alkalosis, especially in a combined acid base disorder. . 70 Because ethnic data is not always readily available, this report includes an eGFR for both -Americans and non- Americans. The National Kidney Disease Education Program (NKDEP) does not endorse the use of the MDRD equation for patients that are not between the ages of 18 and 70, are , have extremes of body size, muscle mass, or nutritional status, or are non- or non-. According to the National Kidney Foundation, irrespective of diagnosis, the stage of the disease is based on the level of kidney function: Stage Description GFR(mL/min/1.73 m(2)) 1 Kidney damage with normal or decreased GFR 90 2 Kidney damage with mild decrease in GFR 60- 89 3 Moderate decrease in GFR 30-59 4 Severe decrease in GFR 15-29 5 Kidney failure <15 (or dialysis) 71 Cytology Laboratory [address] [place] [address], [address] [place] [address] CYTOLOGY REPORT Name: Brianda Pete : 1960 (Age: 50) Sex: F Location: [facility] Soc. Sec. #: Date Collected: 02/09/2011 Billing #: [id number] Date Received: 02/09/2011 Physician(s): ANNEMARIE MEJÍA MD Source of Specimen: ENDOCERVICAL/ECTOCERVICAL THIN PREP Clinical Information: Date of Last Menstrual Period: None Provided Menstrual History: Irregular Post menopausal: 2006 Specimen Adequacy: SATISFACTORY FOR EVALUATION. ADEQUATE ENDOCERVICAL/TRANSFORMATION ZONE. General Categorization: NEGATIVE FOR INTRAEPITHELIAL LESION OR MALIGNANCY. dcl Electronic Signature NEHEMIAH Armijo (ASCP) Reported: 02/13/2011 Also seen by:Sangeetha Dey, CT (ASCP) Cytology Outreach [facility] ICD-9 Code(s) V76.2 Procedures Date Code Description Status 05/15/2018 80716 Collect Blood Specimen From Completely Implant Venous Completed Access Dev 04/10/2018 20833 EKG Interpretation And Report Only Completed 04/09/2018 02432 Remove Impact Cerumen Irrigati Completed 01/28/2018 75266 Eye Exam Est Patient Comprehensive Completed 08/29/2017 67990 Bronchospasm Provocation Evaluation Multi Spirometric Completed Determinati 08/29/2017 78381 Spirometry Completed 07/26/2017 69824256 Mammogram Completed 12/13/2016 35935 Eye Exam Est Patient Comprehensive Completed 09/27/2016 02186 EKG Interpretation And Report Only Completed 07/19/2016 89939464 Mammogram Completed 01/21/2016 01263656 Colonoscopy Completed 12/10/2015 21448 Eye Exam New Patient Comprehensive Completed 08/19/2014 89638 EKG-Tracing And Report Completed 08/04/2014 06349 Remove Impacted Cerumen Completed 05/05/2014 61890 I & D Of Abscess/Simple Or Single Completed 05/13/2013 31015 Mammography Unilateral Completed 08/21/2012 05636 EKG Interpretation And Report Only Completed 02/21/2011 523155298 Bone Mineral Density Test Completed 06/16/2010 64362 Colonoscopy Completed 12/31/2008 29898 Remove Impacted Cerumen Completed 10/17/2006 45883 Acoustic Reflex Testing Completed 10/17/2006 85288 Tympanometry Completed 10/17/2006 00659 Audiometry, Comprehensive Completed 08/29/2005 24052 Remove Impacted Cerumen Completed Encounters Type Date Location Provider Dx Diagnosis Office Visit 06/11/2018 9:00a Urology Matt Melo M.D. 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 N20.0 Calculus of kidney F32.9 Major depressive disorder, single episode, unspecified F41.9 Anxiety disorder, unspecified E21.0 Primary hyperparathyroidism D70.9 Neutropenia, unspecified H61.23 Impacted cerumen, bilateral Office Visit 02/15/2018 1:45p Family Medicine Tanya Rouse, N76.0 Acute vaginitis Ej Rey MD, PHD R30.0 Dysuria R35.0 Frequency of micturition Office Visit 01/22/2018 1:00p Family Medicine Tanya Rouse, J45.998 Other asthma Ej Rey MD, PHD F80.9 Developmental disorder of speech and language, unspecified Z74.1 Need for assistance with personal care Z79.899 [facility] drug therapy Office Visit 11/19/2017 8:45a Oncology Office Susan, D70.9 Neutropenia , Ryan, DO unspecified Office Visit 11/16/2017 9:15a Family Medicine Maria Borja, R13.19 Other dysphagia David LAM M.D. Office Visit 10/24/2017 2:45p Family Medicine Maria Borja, R13.19 Other dysphagia David LAM M.D. Office Visit 09/19/2017 3:30p Family Medicine Maria Borja, J30.1 Allergic rhinitis David LAM M.D. due to pollen R06.02 Shortness of breath Office Visit 08/14/2017 1:15p Family Medicine Maria Borja J30.1 Allergic David LAM M.D. rhinitis due to pollen R06.02 Shortness of breath Office Visit 08/02/2017 1:45p Family Medicine Tanya Rouse, J30.1 Allergic Ej Rey MD, PHD rhinitis due to pollen R05 Cough R06.02 Shortness of breath H61.21 Impacted cerumen, right ear K02.7 Dental root caries J01.90 Acute sinusitis, unspecified J45.998 Other asthma Office Visit 07/09/2017 8:45a Oncology Office Susan, D70.9 Neutropenia , Ryan, DO unspecified D64.9 Anemia, unspecified Office Visit 06/29/2017 10:00a Family Medicine Maria Borja, Z00.00 Encntr for David LAM M.D. general adult medical exam w/o abnormal findings Z00.00 Encntr for general adult medical exam w/o abnormal findings Z12.31 Encntr screen mammogram for malignant neoplasm of breast Z12.31 Encntr screen mammogram for malignant neoplasm of breast Z12.4 Encounter for screening for malignant neoplasm of cervix Z12.4 Encounter for screening for malignant neoplasm of cervix Z13.6 Encounter for screening for cardiovascular disorders Z13.6 Encounter for screening for cardiovascular disorders L20.9 Atopic dermatitis, unspecified Z23 Encounter for immunization Office Visit 03/08/2017 9:00a Oncology Office Susan, D70.9 Neutropenia , Ryan, DO unspecified H10.10 Acute atopic conjunctivitis, unspecified eye Office Visit 02/13/2017 3:00p Family Medicine Susan Albert, J30.9 Allergic rhinitis, David LAM PA unspecified H10.10 Acute atopic conjunctivitis, unspecified eye D70.9 Neutropenia, unspecified Office Visit 11/06/2016 9:30a Oncology Susan, D70.9 Neutropenia, Office Ryan DO unspecified Office Visit 11/01/2016 4:45p Maria Espinosa, M79.605 Pain in left leg Medicine David De La Garza RD Office Visit 06/23/2016 9:00a Maria Espinosa, Z00.01 Encounter for Andreea Hernandez M.D. general adult RD medical exam w abnormal findings Z00.01 Encounter for general adult medical exam w abnormal findings B35.4 Tinea corporis Z23 Encounter for immunization Office Visit 05/08/2016 11:00a Oncology Susan, D61.818 Other pancytopenia Office DO Ryan E21.0 Primary hyperparathyroidism Office Visit 03/02/2016 3:00p Oncology Susan, D61.818 Other pancytopenia Office DO Ryan Office Visit 06/22/2015 1:30p Family Mejía R82.90 Unspecified Medicine David Sharpe M.D. abnormal findings RD in urine Office Visit 05/07/2015 10:00a Family Mejía Z00.01 Encounter for Medicine David Sharpe M.D. general adult RD medical exam w abnormal findings R19.5 Other fecal abnormalities E21.0 Primary hyperparathyroidism Z01.419 Encntr for obstetrics and gynecology professor exam (general) (routine) w/o abn findings Office Visit 08/19/2014 Family Medicine Ayanna, V81.2 Screening For 2:30p David Sharpe M.D. Cardiovascular Conditions Unspec Office Visit 10/17/2006 Operating Room Montrell Berrios, 382.01 Otitis Media Acute 2:30p M.D. Suppurative W/ Spontaneous Rupture Drum Plan of Treatment Future Appointment(s):12/12/2018 8:30 am - Matt Melo M.D. at [email or web address] 3:00 pm - Renee Rodriguez MS, OWNER MANAGER-C, CNM at Primary Care Vbqoah9411/19 8:30 am - Oncology Nurse at Oncology Mkxgsl5311/26/2018 8:30 am - Ryan Davis DO at Oncology Uyberv5502/04/2019 3:00 pm - Miki Arredondo MD at Gimawtxlxiqyl54/12/2019 - Matt Melo M.D.N20.0 Calculus of kidneyComments: I will obtain a CT scan for further evaluation of this her stone dlhsmeG38.1 NocturiaComments:Continue with KdflbxpeZ17.1 Cyst of kidney, acquiredComments: Follow-up in [address] scan
--- OUTSIDE RECORDS SUMMARY | 2018-06-26 16:45 | XMS REPORT | Continuity of Care Document ---
:1960 External Reference #:[id number] Author Name Ryan Davis, Address [address] [place] [address] Care Team Providers Name Role Phone Arianne Garcia MD Care Team Information Dog Warden Unavailable Arianne Garcia MD Primary Care Physician Unavailable Payers Date Identification Numbers Payment Provider Subscriber Policy Number: [id number] Medicare Brianda Pete PayID: [id number] [address] [place] [address] Policy Number: [id number] Medicaid Brianda Pete PayID: [id number] [address] [place] [address] Advance Directives Description No Information Available Problems [...] Tanya Rouse MD, PHD Active Onset: 01/22/[address] [facility] [address] [facility] Tanya Rouse MD, PHD Active of occurrence of [...] single Arianne Garcia MD Active episode, unspecified Family History Date Family Member(s) Observation Comments Father due to Pancreatic Cancer () Mother due to Kidney Disease () First Sister Diabetes First Sister due to Stroke () First Sister Chronic Obstructive Pulmonary Disease (COPD) Social History Type Date Description Comments Sex Unknown [facility] 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 Hand Dominance Right-handed ETOH Use Never used alcohol Tobacco Use Start: Unknown Patient has never smoked Smoking Status Reviewed: 05/29/18 Patient has never smoked Allergies, Adverse Reactions, Alerts Description No Known Drug Allergies Medications Medication Date Status Form Strength Qnty SIG Indications Ordering Provider Hydrocortisone 04/09 Active Cream 1% apply to Jose affected MD Arianne area three times a day prn [id number] 03/04 Active Chewtabs 1mg 90uni 1 tab by Padma ts mouth every Tanya, day andria HARTLEY, PHD Triple 10/16 Active Ointment 5-400-500 42gm apply to Jose, 0 affected MD Arianne area 2-4x daily as needed Maalox Max 08/14 Active Suspension 400-400-4 355ml 5-15 0mg/5ML milliliters Maria, every 6 M.D. hours for upset stomach Claritin 08/14 Active Capsules 10mg 30cap 1 by mouth Gagen, s every day as Puja needed e, MS, allergy FIELD [employer]-C, symptoms CNM Nebulizer 08/02 Active Kit 1unit Reusable kit R06.02 , Kit/Tubing/Mout /2017 s 1 twice a Tanya, day short of , PHD breath. r06.02 Xylimelts 08/02 Active Disk 500mg 90uni 1 each by K02.7 ts mouth three Tanya, times a day , PHD after meals Folic Acid 07/26 Active Tablets 1mg 90tab 1 tab PO Q , s Daily Frederic Sifuentes Tab-A-Apoorva 04/23 Active Tablets 30tab 1 by mouth , s every day MD Tanya, PHD Acetaminophen Active Tablets 325mg 30tab i-ii by , s mouth every Maria, 6 hours as M.D. needed Robitussin DM Active Syrup 100-10mg/ 355ml 5mL prn , / 5ML cough Frederic Sifuentes Kaopectate Active Suspension 262mg/15M 240ml 2 tablespoon , L by mouth Maria, after each M.D. loose bm as needed Miralax Active Powder 30uni mix one F80.9 Padma ts capefull Tanya, 17gms in 8 , [...] Active Capsules 5000Uni 30c Take 1 Capsule Closplint, t aps By Mouth Daily MD Tanya, PHD Vitamin D3 03/07/2018 - Hx Capsules 5000Uni 30c 1 by mouth Closplint, Maximum Strength 04/03/2018 t aps every day MD Tanya, PHD Keflex 02/15/2018 - Hx Capsules 500mg 20c 1 cap by mouth R3 Closplint, 02/25/2018 aps twice a day 0. Tanya, 0 , PHD Diflucan 02/15/2018 - Hx Tablets 150mg 2ta 1 tab oral for N7 Closplint, 04/09/2018 bs yeast. repeat 6. Tanya, in 1 week. 0 , PHD Triple Antibiotic 10/16/2017 - Hx Ointment 1Tu apply to [facility], 10/16/2017 be affected area Maria, 2-4x daily prn M.D. Triple Antbiotic 08/14/2017 - Hx Ointment 1Tu apply to area [facility], 10/16/2017 be 2-4x a day as Maria, needed M.D. Albuterol Sulfate 08/14/2017 - Hx Nebulizer 1.25mg/ 75u 1 vial inhaled R0 [facility], 10/24/2017 3ML nit every 4 hours 6. Maria, s as needed 02 M.D. wheezing or sob Mucinex 08/02/2017 - Hx Tablets ER 600mg 30t 1 tab by mouth J3 Padma, 08/14/2017 12HR abs twice a day 0. Tanya, congestion 1 , PHD take with lots of fluids 12 Hour Nasal 08/02/2017 - Hx Solution 0.05% 15m 2 sprays J0 Padma, Relief [place] 08/05/2017 l intranasal 1. Tanya, twice a day 90 , PHD painful pressure Albuterol Sulfate 08/02/2017 - Hx Nebulizer (2.5mg/ 75m 1 vial by R0 Closplint, 08/14/2017 3ML) l nebulizer 6. Tanya, 0.083% twice a day 02 , PHD when congested Benadryl Allergy 08/02/2017 - Hx Capsules 25mg 30c 1 cap by mouth J3 Closplint, 08/14/2017 aps at bedtime as 0. Tanya, needed in 1 , PHD allergy season Vitamin B12 07/26/2017 - Hx Tablets ER 1000mcg 90t 1 tab by mouth Huong, 10/24/2017 abs every daily Frederic Sifuentes Vitamin D3 1000Iu 04/19/2017 - Hx 60u 2 by mouth Closplint, Softgel (SD) 03/07/2018 nit rhys Martínez MD, PHD Neosporin 03/08/2017 - Hx Ointment 3.5-400 14. apply to area [facility], Original 06/29/2017 -5000 200 qid prn castillo Davis [...] Hx Cream 1% 30g apply to B3 [facility], 02/13/2017 m affected area 5. Maria, twice a day 4 M.D. Vitamin D3 High 04/23/2015 - Hx Capsules 1000Uni 30c 1 by mouth Huong, Potency 06/29/2017 t aps every day Frederic Sifuentes [facility] Vitamin D3 12/26/2010 - Hx Capsules 1000Uni 30c 1 by mouth Ayanna , 06/22/2015 t aps every day MD Annemarie Fluoxetine HCL - Hx Capsules 10mg 30c 1 po qd Ayanna, 05/07/2015 aps MD Annemarie Buspirone HCL - Hx Tablets 30mg 60t 1 PO bid Mejía, 04/09/2018 abs MD Annemarie Trospium Chloride - [...] - Hx Capsules 20mg 1 by mouth Mejía, 06/22/2015 every day Frederic Sharpe Fluoxetine HCL [...] - Hx Liquid 1000mcg 450 15 milliliters Closplint, 03/04/2018 /15ML ml by mouth every magdiel Martínez MD, PHD Fluvoxamine - Hx Tablets 100mg 1 tablet at Unknown Maleate 04/09/2018 bedtime 1 Immunizations CPT Code Status Date Vaccine Lot # [id number] Given 01/16/2018 Influenza,Unspecified [id number] Given 06/29/2017 Pneumovax Injection [id number] 46605 Given 06/29/2017 Tdap injection [id number] 48198 Given 12/13/2016 Influenza Virus Vaccine, Quadrivalent, Slit Virus, Im Use 07582 Given 12/13/2016 Influenza Virus Vaccine, Quadrivalent, Slit Virus, Im Use 17627 Given 06/23/2016 Pneumococcal Conjugate Vaccine 13 Valent For [id number] Intramuscular Use 81876 Given 02/05/2016 Influenza Virus Vaccine Split Virus Use For Individual 3Yr Older 97494 Given 02/01/2015 Influenza Virus Vaccine, Split Virus, 6-35 Months Age Intramuscul 00091 Given 04/06/2014 flu vaccination 21806 Given 12/11/2011 flu vaccination 97427 Given 11/30/2008 flu vaccination 85473 Given 02/04/2008 Tdap injection 05894 Given 02/04/2008 flu vaccination Vital Signs Date Vital Result Comment 05/29/2018 8:48am BP Systolic 133 mmHg BP [...] kg/m2 BSA (Body Surface Area) 1.76 m2 Max body weight in kilograms 51 kg O2 % BldC Oximetry 100 % 04/09/2018 8:43am BP Systolic Sitting Right Arm 115 mmHg BP Diastolic Sitting Right Arm 71 mmHg Body Temperature 98.6 F Heart Rate 66 /min Respiratory Rate 16 /min Height 62.6 inches 5'2.60" Weight 161.00 lb BMI (Body Mass Index) 28.9 kg/m2 BSA (Body Surface Area) 1.76 m2 Max body weight in kilograms 51 kg O2 % BldC Oximetry 97 % 02/15/2018 2:04pm BP Systolic 105 mmHg BP Diastolic 67 mmHg Body Temperature 98.3 F Heart Rate 59 /min Respiratory Rate 16 /min Height 62.6 inches 5'2.60" Weight 161.00 lb BMI (Body Mass Index) 28.9 kg/m2 BSA (Body Surface Area) 1.76 m2 Max body weight in kilograms 51 kg O2 % BldC Oximetry 98 % 01/22/2018 1:23pm BP Systolic 103 mmHg BP Diastolic 65 mmHg Body Temperature 97.8 F Heart Rate 60 /min Respiratory Rate 18 /min Height 62.6 inches 5'2.60" Weight 155.00 lb BMI (Body Mass Index) 27.8 kg/m2 BSA (Body Surface Area) 1.73 m2 Max body weight in kilograms 51 kg O2 % BldC Oximetry 99 % Ora 11/19/2017 8:48am BP Systolic 113 mmHg BP Diastolic 70 mmHg Body Temperature 97.6 F Heart Rate 60 /min Respiratory Rate 18 /min Height 62.6 inches 5'2.60" Weight 153.00 lb BMI (Body Mass Index) 27.4 kg/m2 BSA (Body Surface Area) 1.72 m2 Max body weight in kilograms 51 kg O2 % BldC Oximetry 99 % Ra Pain Level 0 11/16/2017 9:15am BP Systolic 112 mmHg BP Diastolic 70 mmHg Body Temperature 96.8 F Heart Rate 60 /min Respiratory Rate 18 /min Height 62.6 inches 5'2.60" Weight 154.00 lb BMI (Body Mass Index) 27.6 kg/m2 BSA (Body Surface Area) 1.72 m2 Max body weight in kilograms 51 kg O2 % BldC Oximetry 98 % 10/24/2017 2:58pm BP Systolic Sitting Right Arm 106 mmHg BP Diastolic Sitting Right Arm 62 mmHg Body Temperature 97.5 F Height 62.6 inches 5'2.60" Weight 155.25 lb BMI (Body Mass Index) 27.9 kg/m2 BSA (Body Surface Area) 1.73 m2 Max body weight in kilograms 51 kg 09/19/2017 3:48pm BP Systolic 110 mmHg BP Diastolic 64 mmHg Body Temperature 97.2 F Heart Rate 62 /min Respiratory Rate 16 /min Height 62.5 inches 5'2.50" Weight 157.00 lb BMI (Body Mass Index) 28.3 kg/m2 BSA (Body Surface Area) 1.74 m2 Max body weight in kilograms 51 kg O2 [...] kg/m2 BSA (Body Surface Area) 1.74 m2 Max body weight in kilograms 51 kg 07/09/2017 8:39am BP Systolic 99 mmHg BP Diastolic 62 mmHg Body Temperature 98.2 F Heart Rate 54 /min Respiratory Rate 16 /min Height 62.5 inches 5'2.50" Weight 158.50 lb BMI (Body Mass Index) 28.5 kg/m2 BSA (Body Surface Area) 1.74 m2 Max body weight in kilograms 51 kg O2 % BldC Oximetry 99 % On R/A Pain Level 0 06/29/2017 9:54am BP Systolic 102 mmHg BP Diastolic 60 mmHg Body Temperature 96.8 F Heart Rate 50 /min Height 62.5 inches 5'2.50" Weight 163.00 lb BMI (Body Mass Index) 29.3 kg/m2 BSA (Body Surface Area) 1.76 m2 Max body weight in kilograms 51 kg O2 [...] kg/m2 BSA (Body Surface Area) 1.80 m2 Max body weight in kilograms 50 kg 06/23/2016 9:03am BP Systolic Sitting Left Arm 124 mmHg BP Diastolic Sitting Left Arm 80 mmHg Body Temperature 98.0 F Heart Rate 64 /min Respiratory Rate 16 /min Height 62 inches 5'2" Weight 184.25 lb BMI (Body Mass Index) 33.7 kg/m2 BSA (Body Surface Area) 1.85 m2 Max body weight in kilograms 50 kg 05/08/2016 [...] Date Facility Test Result H/L Range Note CBS 05/15/2018 [facility] White Blood 3.9 K/uL N 3.1-10.7 1 W/Automated [address] [place] [address] [phone] Red Blood Count 4.41 M/uL N 3.90-5.40 [...] 40.4-72.8 Lymph % 29.6 % N 20.0-42.0 [place] % 16.2 % High 4.3-13.2 Eo% 19.6 % High 0.0-6.6 Bas% 1.0 % N 0.0-1.1 Neut# 1.30 K/uL Low 1.8-7.0 Lymph # 1.15 K/uL N 1.0-4.0 [place] # 0.63 K/uL N 0.3-0.9 Eos # 0.76 K/uL High 0.0-0.5 Baso # 0.04 K/uL N 0.0-0.1 Affirm 04/17/2018 [facility] Trichomonas Negative [Negative] [address] [place] [place] [address] [phone] Gardnerella vaginalis Negative [Negative] Natalie species Negative [Negative] 3 Urine Culture 02/15/2018 [facility] Urine Culture MIXED URETHRAL F 4, [address] <SEE NOTE> [place] [address] [phone] Quantity 10,000 - 100,000 <SEE NOTE> 6 Ua RFX Micro & Culture 02/15/2018 [facility] Urine Color YELLOW Yellow II [address] [place] [address] [phone] Urine Clarity SL CLOUDY Clear Urine Glucose - Dipstick NEGATIVE mg/dL Negative Urine Bilirubin - Dipstick NEGATIVE Negative Urine Ketone NEGATIVE mg/dL Negative Urine Specific [place] <=1.005 Low 1.010-1.030 Urine Blood TRACE Negative [...] Seen Urine Bacteria VERY FEW None Seen Genital Culture W/ 02/15/2018 [facility] Gram Stain GRAM STAIN INDET 7 Gram Stain [address] <SEE NOTE> [place] [address] [phone] Gram Stain FEW GR POS. BACI <SEE NOTE> 8 Gram Stain FEW GRAM VARIABL <SEE NOTE> 9 Gram Stain RARE CURVED GRAM <SEE NOTE> 10 Gram Stain MODERATE GRAM PO <SEE NOTE> 11 Gram Stain RARE WHITE BLOOD <SEE NOTE> 12 Genital Culture GENITAL LELE CBS W/Automated 11/05/2017 [facility] White Blood 3.5 K/uL N 3.1-10.7 [address] [place] [address] [phone] Red Blood Count 4.29 M/uL N 3.90-5.40 [...] 40.4-72.8 Lymph % 37.6 % N 20.0-42.0 [place] % 17.3 % High 4.3-13.2 Eo% 5.5 % N 0.0-6.6 Bas% 2.3 % High 0.0-1.1 Neut# 1.29 K/uL Low 1.8-7.0 Lymph # 1.30 K/uL N 1.0-4.0 [place] # 0.60 K/uL N 0.3-0.9 Eos # 0.19 K/uL N 0.0-0.5 Baso # 0.08 K/uL N 0.0-0.1 Iron-Tibc-%Sat 11/05/2017 [facility] Serum Iron 71 g/dL N 50-170 [address] [place], [place] [id number] [phone] Total Iron Binding Capacity 238 g/dL Low 250-450 Transferrin %Saturation 30 % N 12-57 Vitamin B12 And 11/05/2017 [facility] Vitamin B12 867 pg/mL N 193-986 Folate [address] [place], [place] [address] [phone] Folic Acid > 20.0 ng/mL High 3.1-17.5 Comprehensive Metabolic 11/05/2017 [facility] Glucose 75 mg/dL N 74-106 Panel [address] [place], [place] [address] [phone] BUN 30 mg/dL High 7-18 Creatinine 1.2 [...] 12-78 Alkaline Phosphatase 58 U/L N 45-117 CBS W/Automated 07/02/2017 [facility] White Blood 2.8 K/uL Low 3.1-10.7 [address] Count [place], [place] [address] [phone] Red Blood Count 4.23 M/uL N 3.90-5.40 [...] 40.4-72.8 Lymph % 39.3 % N 20.0-42.0 [place] % 21.8 % High 4.3-13.2 Eo% 11.8 % High 0.0-6.6 Bas% 3.2 % High 0.0-1.1 Neut# 0.67 K/uL Low 1.8-7.0 Lymph # 1.10 K/uL N 1.0-4.0 [place] # 0.61 K/uL N 0.3-0.9 Eos # 0.33 K/uL N 0.0-0.5 Baso # 0.09 K/uL N 0.0-0.1 Vitamin B12 And 07/02/2017 [facility] Vitamin B12 548 pg/mL N 193-986 Folate [address] [place] [address] [phone] Folic Acid > 20.0 ng/mL High 3.1-17.5 Iron-Tibc-%Sat 07/02/2017 [facility] Serum Iron 53 g/dL N 50-170 [address] [place] [address] [phone] Total Iron Binding Capacity 234 g/dL Low 250-450 Transferrin %Saturation 23 % N 12-57 Laboratory 07/02/2017 [facility] Anti-Nuclear Negative Negative 16 test finding [address] Antibodies AU/[place] [address] Direct [phone] Slide Review 07/02/2017 [facility] Slide Review DIFF ORDERED [address] [place] [address] [phone] Laboratory 07/02/2017 [facility] Path Review: <pending> 17 test finding [address] [place] [address] [phone] Differential-W 07/02/2017 [facility] Total Cells 100 #CELLS BC Confirm [address] [place], [place] [address] [phone] Band% 2 % N 0-8 Neutrophils% 34 % N 33-73 Lymph% 36 % N 20-42 Atypical Lymph% 1 % N 0-7 Monocyte% 17 % High 0-10 Eosinophil% 10 % High 0-5 Platelet Estimate NORMAL RBC Morphology NORMAL Comprehensive Metabolic 06/29/2017 [facility] Glucose 85 mg/dL N 74-106 18 Panel [address] [place], [place] [address] [phone] BUN 21 mg/dL High 7-18 Creatinine 1.2 [...] add FT4? Y LDL Cholesterol Profile 06/29/2017 [facility] Cholesterol 124 mg/dL <[address] [place] [address] [phone] Triglycerides 99 mg/dL <150 21 HDL Cholesterol 41 mg/dL >40 22 LDL-Cholesterol 63 mg/dL < 100 23 Reflex add FT3? Y Reflex add FT4? Y TSH Reflex FT4 06/29/2017 [facility] Thyroid Stim 1.07 uIU/mL N 0.30-4.20 And/Or FT3 [address] [place] [address] [phone] Reflex add FT3? Y Reflex add FT4? Y CBS W/Automated 03/02/2017 [facility] White Blood 2.8 K/uL Low 3.1-10.[address] [place] [address] [phone] Red Blood Count 4.27 M/uL N 3.90-5.40 [...] 40.4-72.8 Lymph % 34.1 % N 20.0-42.0 [place] % 17.2 % High 4.3-13.2 Eo% 5.7 % N 0.0-6.6 Bas% 2.9 % High 0.0-1.1 Neut# 1.12 K/uL Low 1.8-7.0 Lymph # 0.95 K/uL Low 1.0-4.0 [place] # 0.48 K/uL N 0.3-0.9 Eos # 0.16 K/uL N 0.0-0.5 Baso # 0.08 K/uL N 0.0-0.1 Slide Review 03/02/2017 [facility] Slide Review (SEE NOTE) 24 [address] [place] [address] [phone] Laboratory test 03/02/2017 [facility] Path Review: <pending> finding [address] [place] [address] [phone] CBS W/Automated 02/13/2017 [facility] White Blood 3.2 K/uL N 3.1-10. Diff [address] Count 7 [place] [address] [phone] Red Blood Count 4.24 M/uL N 3.90-5.40 [...] 1.8-7.0 Lymph # 1.37 K/uL N 1.0-4.0 [place] # 0.61 K/uL N 0.3-0.9 Eos # 0.23 K/uL N 0.0-0.5 Baso # 0.05 K/uL N 0.0-0.1 Slide Review 02/13/2017 [facility] Slide Review DIFF ORDERED [address] [place] [address] [phone] Differential-WBC 02/13/2017 [facility] Total Cells 100 #CELLS Confirm [address] Counted [place] 3710540 [phone] Metamyelocyte% 1 % High -0 Band% 2 % N 0-8 Neutrophils% 27 % Low 33-73 Lymph% 45 % High 20-42 Atypical Lymph% 1 % N 0-7 Monocyte% 14 % High 0-10 Eosinophil% 7 % High 0-5 Basophil% 3 % High 0-2 Platelet Estimate NORMAL Anisocytosis 0-1+ Ovalocytes 0-1+ Toxic Granulation 0-1+ Differential Comment FEW LRG PLTS SEE <SEE NOTE> 26 CBS W/Automated 10/30/2016 [facility] White Blood 2.4 K/uL Low 3.1-10.7 [address] [place] [address] [phone] Red Blood Count 4.46 M/uL N 3.90-5.40 [...] 1.8-7.0 Lymph # 0.86 K/uL Low 1.0-4.0 [place] # 0.43 K/uL N 0.3-0.9 Eos # 0.42 K/uL N 0.0-0.5 Baso # 0.07 K/uL N 0.0-0.1 Comprehensive Metabolic 10/30/2016 [facility] Glucose 61 mg/dL Low 74-106 Panel [address] [place], [place] [address] [phone] BUN 18 mg/dL N 7-18 Creatinine 1.1 [...] Phosphatase 48 U/L N 45-117 Reticulocyte 10/30/2016 [facility] Retic % 0.8 % N 0.5-1.8 Count,Automated [address] [place], [place] [address] [phone] Iron-Tibc-%Sat 10/30/2016 [facility] Serum Iron 70 g/dL N 50-170 [address] [place], [place] [address] [phone] Total Iron Binding Capacity 209 g/dL Low 250-450 Transferrin %Saturation 33 % N 12-57 Vitamin B12 And 10/30/2016 [facility] Vitamin B12 600 pg/mL N 193-986 Folate [address] [place] [address] [phone] Folic Acid 50.7 ng/mL High 3.1-17.5 Slide Review 10/30/2016 [facility] Slide Review DIFF ORDERED [address] [place], [place] [address] [phone] Path Review: 10/30/2016 [facility] Path Review: INDICATED,SLIDE 30 [address] <SEE NOTE> [place], [place] [address]28 [phone] Differential-WBC 10/30/2016 [facility] Total Cells 100 #CELLS Confirm [address] [place] [address] [phone] Neutrophils% 18 % Low 33-73 Lymph% 46 % High 20-42 Atypical Lymph% 4 % N 0-7 Monocyte% 11 % High 0-10 Eosinophil% 18 % High 0-5 Basophil% 3 % High 0-2 Platelet Estimate NORMAL Differential Comment [place] <SEE NOTE> 31 LDL Cholesterol 06/23/2016 [facility] Cholesterol 133 mg/dL <200 32, [address] [place] [address] [phone] Triglycerides 70 mg/dL <150 34 HDL Cholesterol 38 mg/dL Low >40 35 LDL-Cholesterol 81 mg/dL < 100 36 Comprehensive Metabolic 06/23/2016 [facility] Glucose 68 mg/dL Low 74-[address] [place] [address] [phone] BUN 17 mg/dL N 7-18 Creatinine 1.1 [...] 12-78 Alkaline Phosphatase 56 U/L N 45-117 Hepatitis C 06/23/2016 [facility] Hepatitis C Nonreactive Nonreactive Antibody [address] [place] [address] [phone] Signal/Cutoff ratio < 0.02 <0.80 38 Laboratory test 06/23/2016 N2N/CCD Import Fit Hemoccult negative finding Laboratory test 03/02/2016 [facility] Anti-Nuclear Negative N Negative [address] Antibodies Direct AU/mL [place], [place] [address]170554 [phone] Reticulocyte 03/02/2016 [facility] Retic % 0.9 % N 0.5-1.8 Count,Automated [address] [place] [address] [phone] Rheumatoid Panel 03/02/2016 [facility] Sedimentation Rate 8 mm/hr N 0-30 ([facility]) [address] [place] [address] [phone] Hla-B27 Disease Association Negative N . 40 Anti-Nuclear Antibodies Direct <pending> Uric Acid 03/02/2016 [facility] Uric Acid 4.7 mg/dL N 2.6-6.[address] [place] [address] [phone] Reflex add FT3? N Reflex add FT4? Y Rheumatoid 03/02/2016 [facility] Rheumatoid < 10.0 N 0.0-15.0 Factor Screen [address] Factor Screen IU/[place] [address] [phone] Reflex add FT3? N Reflex add FT4? Y Lyme AB/Western 03/02/2016 [facility] Lyme Total < 0.91 N 0.00-0.90 41 Blot Reflex [address] AB/[place] [address] [phone] Lyme Disease Antibody,QT,Igm <0.80 index N 0.00-0.79 42 C-Reactive 03/02/2016 [facility] C-Reactive < 2.9 N <3.0 Protein,Quant [address] Protein,Quant mg/[place] [address] [phone] Reflex add FT3? N Reflex add FT4? Y Lupus Anticoagulant Reflex 03/02/2016 [facility] PTT-LA 38.7 sec N 0.0-40.[address] [place] [address] [phone] DRVVT 36.2 sec N 0.0-44.0 Note: Comment: N . 43 CBC 03/02/2016 [facility] White Blood Count 2.4 K/uL Low 3.1-10.[address] [place], [place] [address] [phone] Red Blood Count 4.49 M/uL N 3.90-5.40 [...] fL N 8.9-12.4 Vitamin B12 And 03/02/2016 [facility] Vitamin B12 791 pg/mL N 193-986 Folate [address] [place], [place] [address] [phone] Folic Acid 63.1 ng/mL High 3.1-17.5 Reflex add FT3? N Reflex add FT4? Y TSH Reflex FT4 03/02/2016 [facility] Thyroid Stim 1.29 uIU/mL N 0.30-4.20 And/Or FT3 [address] Hormone [place], [place] [address]84 [phone] Reflex add FT3? N Reflex add FT4? Y Laboratory 03/02/2016 [facility] Platelet <pending> test finding [address] Function/Aggregation [place], [place] [address]8 [phone] Laboratory 03/02/2016 [facility] Path Review: <pending> test finding [address] [place], [place] [address] [phone] Laboratory 06/28/2015 [facility] Urine Culture SEE RESULT 44 test finding [phone] BELOW CBC 05/07/2015 [facility] White Blood Count 2.5 K/uL Low 3. W/Automated [address] 1- [place] [address] 10 [phone] .7 Red Blood Count 4.55 M/uL 3.90-5.40 [...] % 40.4-72.8 Lymph % 36.4 % 17.0-46.1 [place] % 15.0 % High 4.3-13.2 Eo% 4.0 % 0.0-6.6 Bas% 2.4 % High 0.0-1.1 Neut# 1.07 K/uL Low 1.8-7.0 Lymph # 0.92 K/uL Low 1.8-7.0 [place] # 0.38 K/uL 0.3-0.9 Eos # 0.10 K/uL 0.0-0.5 Baso # 0.06 K/uL 0.0-0.1 Comprehensive Metabolic 05/07/2015 [facility] Glucose 77 mg/dL 74-106 Panel [address] [place] [address] [phone] BUN 25 mg/dL High 7-18 Creatinine 1.2 [...] U/L 12-78 Alkaline Phosphatase 72 U/L 45-117 Laboratory test finding 05/05/2014 N2N/CCD Import Tissue Culture W/ See Note 46 Gram Stain Routine Culture W/ Gram 05/05/2014 N2N/CCD Import Aerobic Culture See Note 47 Stain Gram Stain See Note 48 Culture Genital & 05/03/2014 N2N/CCD Import Genital [...] PCR Negative Negative 53 Herpes Source [place] Laboratory test finding 04/06/2014 N2N/CCD Import Cytology Pap See Note 54 Laboratory test finding 04/06/2014 N2N/CCD Import Fit Hemocult negative Comprehensive Metabolic Panel 04/06/2014 N2N/CCD Import Alb/Glob [...] 80 mg/dL 74-106 If >60 mL/min >60 55 Potassium 4.8 mmol/L 3.5-5.1 SGPT/Alt 19 U/L 12-78 Sgot/Ast 19 U/L 15-37 Sodium 138 mmol/L 136-145 Total Protein 7.1 g/dL 6.4-8.2 CBC/Manual Differential 04/06/2014 N2N/CCD Import Atypical Lymph% [...] #CELLS White Blood Count 3.2 K/uL 3.1-10.7 Laboratory test finding 03/17/2013 N2N/CCD Import Baso # 0.08 K/uL 0.0- 0.1 Eos # 0.12 K/uL 0.0-0.5 Hematocrit 41.8 % 36.0-46.1 Hemoglobin 13.5 gm/dL 11.6-15.8 Lymph # 1.29 K/uL 0.8-3.4 Mean Cell Volume 93.5 fl 80.9-99.0 Mean Corpuscular HGB 30.2 pg 25.9-32.7 Mean Corpuscular HGB Conc 32.3 g/dL 30.8-34.3 [place] # 0.49 K/uL 0.3-0.9 Neut# 0.66 K/uL [...] Mean Platelet Volume 13.1 fL High 8.9-12.4 [place] # 0.39 K/uL 0.3-0.9 [place] % 14.3 % High 4.3-13.2 Neut# 1.12 [...] K/uL Low 3.1-10.7 Basic Metabolic Panel 07/11/2011 N2N/AgLocal Import Anion Gap 8 mEq/L 8-16 BUN 18 mg/dL 5-23 BUN/Creat 18.0 ratio Calcium 8.7 mg/dL 8.5-10.1 Carbon Dioxide 29 mEq/L 18-29 Chloride 108 mmol/L High 98-107 Creatinine 1.0 mg/dL 0.5-1.4 Glom Filtration Rate, Estimate >60 mL/min >60 Glucose 92 mg/dL 76-115 If >60 mL/min >60 60 Potassium 4.4 mmol/L 3.5-5.1 Sodium 141 mmol/L 136-145 CBC 07/11/2011 N2N/AgLocal Import Hematocrit 38.7 % 36.0-46.1 Hemoglobin 12.3 [...] 2.6 K/uL Low 3.1-10.7 Laboratory test 07/10/2011 [employer] [employer]/Ag[employer] Import HCG Serum, Qualitative Negative finding Lipase 119 U/L 28-380 Urine HCG (Qualitative) Negative Negative 61 Urine Screen See Note 62 CBS W/Automated Diff 07/10/2011 N2N/AgLocal Import Bas% 0.3 % 0.0-1.1 Baso # [...] Mean Platelet Volume 13.1 fL High 8.9-12.4 [place] # 0.34 K/uL 0.3-0.9 [place] % 10.8 % 4.3-13.2 Neut# 2.15 K/uL [...] Protein 7.2 g/dL 6.3-8.0 Urinalysis With 07/10/2011 N2N/CCD Import Urine Amorph Small Negative Microscopic Sediment [...] Urine RBC 2-5 rbc/hpf 0-7 Urine Specific [place] 1.010 1.010-1.030 Urine Uric Acid Crystals Few None Seen Urine Urobilinogen - Dipstick 0.2 E.U./dL 0.2-1.0 Urine WBC 0-2 wbc/hpf 0-7 Stool Occult Blood QL 02/13/2011 N2N/CCD Import Occult Blood #1 Stool Positive Imm Occult Blood #2 Stool Negative Occult Blood #3 Stool Negative Laboratory test 02/09/2011 N2N/CCD Import Cytology Pap See Note 64 finding Laboratory test 02/09/2011 N2N/CCD Import TSH 1.40 MIU/ML 0.34-5.60 finding Basic Metabolic 02/09/2011 N2N/CCD Import Anion Gap 6.0 mmol/L 2-11 65 Panel BUN 26 mg/dL High 6-24 BUN/Creatinine Ratio 28.9 High 8-20 Calcium 9.5 mg/dL 8.1-9.9 Chloride 103 mmol/L 101-111 Co2 (Carbon Dioxide) 30.0 mmol/L 22-32 Creatinine 0.9 mg/dL 0.50-1.40 Glucose 82 mg/dL 70-100 One Over Creatinine 1.11 Potassium 4.7 mmol/L 3.5-5.0 Sodium 139 mmol/L 135-145 eGFR 84.6 > 60 66 eGFR Non- 65.7 > 60 CBC With Manual Diff 02/09/2011 N2N/CCD Import [...] White Blood Count 2.4 CUMM Low 4.8-10.8 Lipid Profile 02/09/2011 N2N/CCD Import Cholesterol 135 mg/dL Less Than 67 (Trig/Chol/HDL) 200 Cholesterol/HDL Ratio 3.75 AVERAGE 1-4.44 High Density Lipoprotein 36 mg/dL Low 40-60 68 Low Density Lipoprotein 88 mg/dL Less Than 100 69 Triglyceride 53 mg/dL 40-200 Liver Function Panel 02/09/2011 N2N/CCD Import Albumin 4.1 GM/DL 3.6- 5.4 Albumin/Globulin Ratio 1.4 1-3 Alkaline Phosphatase 47 U/L 30-110 Alt (SGPT) 17 U/L 14-54 Ast (Sgot) 24 U/L 12-42 Bilirubin Direct 0.2 mg/dL 0.1-0.5 Bilirubin Total 0.9 mg/dL 0.4-1.5 70 Globulin 2.9 GM/DL 2-4 Indirect Bilirubin 0.7 mg/dL 0.3-1.0 71 Total Protein 7.0 GM/DL 6.2-8.1 1 D70.9 2 N76.0 3 Method: BD Affirm VPIII DNA Probe Assay 4 R30.0 R35.0 N76.0 5 MIXED URETHRAL LELE 6 10,000 - 100,000 CFU/mL 7 GRAM STAIN INDETERMINANT FOR BACTERIAL VAGINOSIS 8 FEW GR POS. BACILLI SUGGESTIVE OF LACTOBACILLUS SP. 9 FEW GRAM VARIABLE COCCOBACILLI 10 RARE CURVED GRAM NEG BACILLI SUGGESTIVE OF MOBILUNCUS 11 MODERATE GRAM POSITIVE COCCI 12 RARE WHITE BLOOD CELLS 13 D70.9 14 Note: Persistent reduction for [...] D64.9 16 Performed at: RN - [facility] [address] [id number] Shellacker: Theresa Nava MD, Phone: [phone] CALLED #NEUTS TO IVANIA Elias AT 4299 07/02/17 by LAB.GT 18 Z13.6 19 Note: [...] seen. RBC morphology essentially normal. Platelet estimate=NORMAL 02/13/172136: NEUT% previously reported as: 30.3 L % Amended result called to: [] - 02/13/17 at 213602/13/172136: LYMPH % previously reported as: 42.3 H % Amended result called to: [] - 02/13/17 at 213602/13/172136: MONO % previously reported as: 18.8 H % Amended result called to: [] - 02/13/17 at 7 02/13/172136: EO% previously reported as: 7.1 H % Amended result called to: [] - 02/13/17 at 7 02/13/172136: BAS% previously reported as: 1.5 H % Amended result called to: [] - 02/13/17 at 2136 26 FEW LRG PLTS SEEN 27 D61.818 28 10/30/16 1412: NEUT% previously reported as: 24.2 L % Amended result called to: [] - 10/30/16 at 1412 10/30/16 1412: LYMPH % previously reported as: 36.6 % Amended result called to: [] 10/30/16 at 14110/30/16 1412: MONO % previously reported as: 18.3 H % Amended result called to: [] 10/30/16 at 1412 10/30/16 1412: EO% previously reported as: 17.9 H % Amended result called to: [] 10/30/16 at 1412 10/30/16 1412: BAS% previously reported as: 3.0 H % Amended result called to: [] 10/30/16 at 1412 29 Note: Persistent reduction [...] 1:19 PM, Report electronically signed Performed at: [facility] [address] [id number] 31 LARGE PLATELETS NOTED 32 Z00.01 33 [...] on IMGT/HLA database version 3.21.0 HLA Lab [place] ID Number [id number] This test was performed using PCR (Polymerase [...] post infection, then gradually decline. Performed at: [address] [id number] Shellacker: Bhupinder Farah MD, Phone: [phone] Performed at: [address] [id number] Shellacker: Theresa Nava MD, Phone: [phone] Performed at: [address] [place] [id number] Shellacker: Carter Chambers PhD, Phone: [phone] 43 No lupus anticoagulant was detected. 44 SEE RESULT BELOW Name: BRIANDA PETE : [address]: Elvi Iglesias MD Acct: [id number] Unit: [id number] AGE: 54 Location: [facility] Re06/28/15 SEX: F Status: DEP ER SPEC: [id number] FERDINAND: 06/28/15-[address] [facility] [address]: Elvi Iglesias MD REQ: [id number] RECD: 06/29/151108 STATUS: IVANA MOSQUERA DR: Annemarie Mejía MD [facility] Physicians _ SOURCE: URINE SPDESC: ORDERED: Urine Culture Procedure Result Reported Site Urine Culture Final 06/30/15- 1036 ML No growth of clinically significant organisms * ML - MAIN LAB ([facility]) . END OF REPORT * ML=Testing performed at Main Lab DEPARTMENT OF PATHOLOGY, [address] [place] [address] Serafin Shukla M.D. Director [facility] # [id number] Note: Persistent reduction for 3 months or more in an eGFR <60 mL/min/1.73 m2 defines CKD. Patients with eGFR values >/=60 mL/min/1.73 m2 may also have CKD if evidence of persistent proteinuria is present. The original MDRD equation for estimated GFR is not valid for patients less than 18 years of age. Additional information may be found at www.kdoqi.org. 46 05/05/14 LAB.TOW ONLY ROUTINE CULTURE SWAB SENT 47 CULTURE SUGGESTS A MIXTURE OF GRAM NEGATIVE AND GRAM POSITIVE ORGANISMS. PLEASE RESUBMIT IF CLINICALLY INDICATED. HOLDING ISOLATE IN MICROBIOLOGY LAB. PLEASE CALL [phone] IF FULL ID/OR SUSCEPTIBILITY DESIRED. 48 GRAM STAIN ! FEW WHITE BLOOD CELLS ! FEW GRAM POSITIVE COCCI ! FEW GRAM NEGATIVE BACILLI 49 RUN DATE: 05/06/14 [facility] LAB LIVE PAGE 1 RUN TIME: [address] [place] [address] Specimen Inquiry ----- Name: BRIANDA PETE : [address]: Shilpa Mercado Acct: [id number] Unit: [id number] AGE: 53 Location: [facility] Re05/03/14 SEX: F Status: DEP ER ----- SPEC: [id number] FERDINAND: 05/03/14-[address] [facility] [address]: Shilpa Chatman DO REQ: [id number] RECD: 05/04/141201 STATUS: IVANA MOSQUERA DR: Annemarie Mejía MD [...] performed at Main Lab DEPARTMENT OF PATHOLOGY, [address] [place] [address] Serafin Shukla M.D. Director [facility] # [id number] 50 Endocervical Endocervical 51 Female urine specimens have been self-validated by [facility] Laboratory and have been granted conditional assay approval by [facility]. 52 RUN DATE: 05/04/14 [facility] LAB LIVE PAGE 1 RUN TIME: [address] [place] [address] Specimen Inquiry ----- Name: BRIANDA PETE : [address]: Shilpa Mercado Acct: [id number] Unit: [id number] AGE: 53 Location: [facility] Re05/03/14 SEX: F Status: DEP ER ----- SPEC: [id number] FERDINAND: 05/03/14-271 [facility] [address]: Shilpa Chatman DO REQ: [id number] RECD: 05/04/14-120 STATUS: IVANA BAEZA DR: Annemarie Mejía MD _ SOURCE: VAGINAL [...] performed at Main Lab DEPARTMENT OF PATHOLOGY, [address] [place] [address] Serafin Shukla M.D. Director [facility] # [id number] 53 ADDITIONAL INFORMATION Analyte Specific Reagent: This test was developed and its performance characteristics determined by [facility]. It has not been cleared or approved by the U.S. Food and Drug Administration. Test Performed by: [facility] - [address] [address] Affiliate Marketing Specialist: José Manuel Hammonds M.D. 54 Cytology Laboratory [address] [place] [address], [address] [place] [address] CYTOLOGY REPORT Name: Brianda Pete : 1960 (Age: 53) Sex: F Location: [facility] Med. Rec. # [id number] Date Collected: 04/06/2014 Billing #: [id number] Date Received: 04/06/2014 Requisition # [id number] Physician(s): ANNEMARIE MEJÍA MD Source of Specimen: ENDOCERVICAL/THIN PREP Clinical Information: Date of Last Menstrual Period: Unknown Interpretation: NEGATIVE FOR INTRAEPITHELIAL LESION OR MALIGNANCY. Specimen Adequacy: SATISFACTORY FOR EVALUATION. Additional Findings: ENDOCERVICAL/TRANSFORMATION ZONE PRESENT. dave Electronic Signature NEHEMIAH Kimble (ASCP) Reported: 04/08/2014 [facility] ICD-9 Code(s) V72.31 55 Note: Persistent reduction for 3 months or more in an eGFR <60 mL/min/1.73 m2 defines CKD. Patients with eGFR values >/=60 mL/min/1.73 m2 may also have CKD if evidence of persistent proteinuria is present. The original MDRD equation for estimated GFR is not valid for patients less than 18 years of age. Additional information may be found at www.kdoqi.org. 56 Because ethnic data is not always [...] 62 07/10/11 LAB.TOW Deleted by [facility] 63 Note: Persistent reduction for 3 months or more in an eGFR <60 mL/min/1.73 m2 defines CKD. Patients with eGFR values >/=60 mL/min/1.73 m2 may also have CKD if evidence of persistent proteinuria is present. The original MDRD equation for estimated GFR is not valid for patients less than 18 years of age. Additional information may be found at www.kdoqi.org. 64 Cytology Laboratory [address] [place] [address], [address] [place] [address] CYTOLOGY REPORT Name: Brianda Pete : 1960 (Age: 50) Sex: F Location: [facility] Soc. Sec. #: Date Collected: 02/09/2011 Billing #: [id number] Date Received: 02/09/2011 Physician(s): ANNEMARIE MEJÍA MD Source of Specimen: ENDOCERVICAL/ECTOCERVICAL THIN PREP Clinical Information: Date of Last Menstrual Period: None Provided Menstrual History: Irregular Post menopausal: 2006 Specimen Adequacy: SATISFACTORY FOR EVALUATION. ADEQUATE ENDOCERVICAL/TRANSFORMATION ZONE. General Categorization: NEGATIVE FOR INTRAEPITHELIAL LESION OR MALIGNANCY. dcl Electronic Signature NEHEMIAH Armijo (ASCP) Reported: 02/13/2011 Also seen by:NEHEMIAH Armijo (ASCP) Cytology Outreach [facility] ICD-9 Code(s) V76.2 65 Anion gap measurement may be of limited value in the presence of any alkalosis, especially in a combined acid base disorder. . 66 Because ethnic data is not always readily [...] 15-29 5 Kidney failure <15 (or dialysis) 67 CHOLESTEROL INTERPRETATION: Desirable: Less than 200 MG/DL Borderline-High Risk: 200-239 MG/DL High-Risk: 240 MG/DL and over 68 HDL INTERPRETATION: Undesirable: High Risk: Less than 40 MG/DL Desirable: Low Risk: Greater than 60 MG/DL 69 LDL INTERPRETATION: Low Risk Optimal Level: LDL Less than 100 MG/DL Near or Above Optimal: LDL 100-129 MG/DL Borderline High Risk: LDL 130-159 MG/DL High Risk : LDL 160-189 MG/DL Very High Risk: LDL Greater than 189 MG/DL 70 A metabolite of Naproxen, O-desmethylnaproxen, has been shown to interfere with the Jendrassik-Lyndsey method for measuring total bilirubin. Samples from patients who have taken Naproxen have shown spurious elevation in total bilirubin levels. 71 Please note updated reference range, effective 10/21/09 Procedures Date Code Description Status 05/15/2018 89204 Collect Blood Specimen From Completely Implant Venous Completed Access Dev 04/10/2018 20804 EKG Interpretation And Report Only Completed 04/09/2018 74065 Remove Impact Cerumen Irrigati Completed 01/28/2018 28764 Eye Exam Est Patient Comprehensive Completed 08/29/2017 42851 Bronchospasm Provocation Evaluation Multi Spirometric Completed Determinati 08/29/2017 71964 Spirometry Completed 07/26/2017 01909992 Mammogram Completed 12/13/2016 44982 Eye Exam Est Patient Comprehensive Completed 09/27/2016 40639 EKG Interpretation And Report Only Completed 07/19/2016 48441005 Mammogram Completed 01/21/2016 63865666 Colonoscopy Completed 12/10/2015 78845 Eye Exam New Patient Comprehensive Completed 08/19/2014 52900 EKG-Tracing And Report Completed 08/04/2014 27471 Remove Impacted Cerumen Completed 05/05/2014 85727 I & D Of Abscess/Simple Or Single Completed 05/13/2013 25618 Mammography Unilateral Completed 08/21/2012 15985 EKG Interpretation And Report Only Completed 02/21/2011 487327672 Bone Mineral Density Test Completed 06/16/2010 61165 Colonoscopy Completed 12/31/2008 34860 Remove Impacted Cerumen Completed 10/17/2006 12970 Acoustic Reflex Testing Completed 10/17/2006 35431 Tympanometry Completed 10/17/2006 78273 Audiometry, Comprehensive Completed 08/29/2005 89256 Remove Impacted Cerumen Completed Encounters Type Date Location Provider Dx Diagnosis Office Visit 05/29/2018 Oncology Office Susan, D70.9 Neutropenia, 8:30a DO Ryan unspecified Office Visit 04/17/2018 Primary Care Trevin N76.0 Acute vaginitis 2:45p Office GATITO Piña Office Visit 04/09/2018 Primary Care Arianne Garcia, 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, 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 N20.0 Calculus of kidney F32.9 Major depressive disorder, single episode, unspecified F41.9 Anxiety disorder, unspecified E21.0 Primary hyperparathyroidism D70.9 Neutropenia, unspecified H61.23 Impacted cerumen, bilateral Office Visit 02/15/2018 1:45p Family Tanya Montesinos, N76.0 Acute vaginitis Ej Rey MD, PHD R30.0 Dysuria R35.0 Frequency of micturition Office Visit 01/22/2018 1:00p Family Medicine aTnya Rouse, J45.998 Other asthma Ej Rey MD, PHD F80.9 Developmental disorder of speech and language, unspecified Z74.1 Need for assistance with personal care Z79.899 Other manager terminal (current) drug therapy Office Visit 11/19/2017 8:45a Oncology Office Susan, D70.9 Neutropenia , DO Ryan unspecified Office Visit 11/16/2017 9:15a Family Medicine Maria Borja, R13.19 Other dysphagia David LAM M.D. Office Visit 10/24/2017 2:45p Family Medicine Maria Borja, R13.19 Other dysphagia David LAM M.D. Office Visit 09/19/2017 3:30p Family [facility] Maria Borja J30.1 Allergic rhinitis David LAM M.D. due to pollen R06.02 Shortness of breath Office Visit 08/14/2017 1:15p Family [facility] Maria Borja J30.1 Allergic David LAM M.D. rhinitis due to pollen R06.02 Shortness of breath Office Visit 08/02/2017 1:45p Family Medicine Tanya Rouse J30.1 Allergic Ej Rey MD, PHD rhinitis due to pollen R05 Cough R06.02 Shortness of breath H61.21 Impacted cerumen, right ear K02.7 Dental root caries J01.90 Acute sinusitis, unspecified J45.998 Other asthma Office Visit 07/09/2017 8:45a Oncology Office Susan, D70.9 Neutropenia , Ryan, DO unspecified D64.9 Anemia, unspecified Office Visit 06/29/2017 10:00a [facility] Maria Borja, Z00.00 Encntr for David LAM [...] Office Visit 02/13/2017 3:00p Family Medicine Susan Albert J30.9 Allergic rhinitis, David LAM PA unspecified H10.10 Acute atopic conjunctivitis, unspecified eye D70.9 Neutropenia, unspecified Office Visit 11/06/2016 9:30a Oncology Susan, D70.9 Neutropenia, Office Ryan, DO unspecified Office Visit 11/01/2016 4:45p [facility] Maria Borja M79.605 Pain in left leg Andreea Hernandez M.D. RD Office Visit 06/23/2016 9:00a Huong Maria, Z00.01 Encounter for Andreea Hernandez M.D. general [...] 05/07/2015 10:00a Family Mejía Z00.01 Encounter for Andreea Sharpe M.D. general adult RD medical exam w abnormal findings R19.5 Other fecal abnormalities E21.0 Primary hyperparathyroidism Z01.419 Encntr for car hostler exam (general) (routine) w/o abn findings Office Visit 08/19/2014 [facility] Andreea Mejía, V81.2 Screening For 2:30p David Sharpe M.D. Cardiovascular Conditions Unspec Office Visit 10/17/2006 Operating Room Montrell Berrios, 382.01 Otitis Media Acute 2:30p M.DSonja Suppurative W/ Spontaneous Rupture Drum Plan of Treatment Future Appointment(s):11/19/2018 8:30 am - Oncology Nurse at Oncology Ypmrsd17 8:30 am - Ryan Davis DO at Oncology Uvdubs1408/09/2018 2:30 pm - Renee Rodriguez MS, FIELD [employer]WMEMBER-C, CNM at Primary Care Mnrebh5306/11/2018 9:00 am - Matt Melo M.D. at Nrutzop87/05/2019 3:00 pm - Miki Arredondo MD at Tbwqjixtbdhsm22/23/2019 1:30 pm - Tanya Rouse MD, PHD at [facility]
[2018-06-26 16:48] VITALS: BP 113/62
--- NOTE | 2018-06-26 17:03 | UC ---
Skin Complaint HPI - HPI Summary HPI Summary: Pt is here with [facility] caregiver. intelligence manager states that pt has enlarged piece of skin protruding from left lateral upper eye lid, unsure of length of time that growth has been on upper eyelid. Pt denies injury or pain. - History of Current Complaint Chief Complaint: UCGeneralIllness Time Seen by Provider: 06/26/18 16:44 Stated Complaint: LEFT EYE CONCERN Hx Obtained From: Patient Hx Last Menstrual Period: N/A ?: No Onset/Duration: Gradual Onset, Lasting Days, Still Present Skin Exposure Onset/Duration: Days Ago Timing: Constant Onset Severity: Mild Current Severity: Mild Pain Intensity: 0 Location: Discrete - left upper eyelid lateral aspect Character: Raised Aggravating Factor(s): Nothing Alleviating Factor(s): Unknown Associated Signs & Symptoms: Positive: Negative - Allergy/Home Medications Allergies/Adverse Reactions: Allergies Allergy/AdvReac Type Severity Reaction Status Date / Time No Known Allergies Allergy Verified 06/26/18 16:48 Home Medications: Home Medications Cyanocobalamin TAB* [Vitamin B12 TAB*] 1,000 mcg PO DAILY 06/26/18 [History Confirmed 06/26/18] Fluvoxamine Maleate [Fluvoxamine Maleate ER] 200 mg PO BEDTIME 06/26/18 [ History Confirmed 06/26/18] Folic Acid TAB* [Folvite TAB*] 1 mg PO DAILY 06/26/18 [History Confirmed ] LoraTADine TAB(NF) [Claritin 10 MG TAB(NF)] 10 mg PO DAILY PRN 06/26/18 [ History Confirmed 06/26/18] Polyethylene Glycol 3350* [Miralax*] 17 gm PO DAILY 06/26/18 [History Confirmed 06/26/18] PMH/Surg Hx/FS Hx/Imm Hx Previously Healthy: Yes - Surgical History Surgical History: None Surgery Procedure, Year, and Place: ADRENAL GLAND REMOVED - Family History Known Family History: Positive: Unknown, Other - Pt is unable to convey family history due to level cognitive function. Family History: Pt is unable to convey family history due to level cognitive function. - Social History Occupation: Disabled Lives: [place] Alcohol Use: None Substance Use Type: None Smoking Status (MU): Never Smoked Tobacco Have You Smoked in the Last Year: No - Immunization History Most Recent Influenza Vaccination: 02/05/16 Most Recent Tetanus Shot: 02/04/08 Vaccination Up to Date: Yes Review of Systems All Other Systems Reviewed And Are Negative: Yes Constitutional: Positive: Negative Skin: Positive: Other - small soft tissue growth Eyes: Positive: Negative ENT: Positive: Negative Respiratory: Positive: Negative Cardiovascular: Positive: Negative Gastrointestinal: Positive: Negative Genitourinary: Positive: Negative Motor: Positive: Negative Neurovascular: Positive: Negative Musculoskeletal: Positive: Negative Neurological: Positive: Negative Psychological: Positive: Negative Is Patient Immunocompromised?: No Physical Exam Triage Information Reviewed: Yes Appearance: Well-Appearing Vital Signs: Initial Vital Signs Temp 98 F 06/26/18 16:44 Pulse 65 06/26/18 16:44 Resp 18 06/26/18 16:44 BP 113/62 06/26/18 16:44 Pulse Ox 100 06/26/18 16:44 Vital Signs Reviewed: Yes Eyes: Positive: Other: - small skin tag, left upper lateral eyelid soft, non tender ENT Exam: Normal Dental Exam: Normal Neck exam: Normal Respiratory: Positive: No respiratory distress Musculoskeletal Exam: Normal Neurological Exam: Normal Psychological Exam: Normal Skin Exam: Other - small skin tag left upper lateral eyelid Course/Dx - Differential Diagnoses - Skin Complaint Differential Diagnoses: Other - stye - Diagnoses Provider Diagnosis: Skin tag Discharge - Sign-Out/Discharge Documenting (check all that apply): Patient Departure All imaging exams completed and their final reports reviewed: No Studies - Discharge Plan Condition: Stable Disposition: HOME Patient Education Materials: Soft Tissue Mass (ED) Referrals: Cristina Sheppard MD [Medical Doctor] - If Needed Maria Borja MD [Medical Doctor] - If Needed Additional Instructions: Acrochordon: A small tag of skin that may have a stalk (a peduncle). An acrochordon may appear on skin anywhere although the favorite locales are the eyelids, neck, armpits (axillae), upper chest, and groin. Medically, an acrochordon is also called a cutaneous papilloma. - Billing Disposition and Condition Condition: STABLE Disposition: Home - Attestation Statements Provider Attestation: Per institutional requirements, I have reviewed the chart, however, I was not consulted specifically or made aware of this patient by the midlevel provider. I did not personally evaluate, interact with , or disposition this patient.
== END 2018-06-26 17:13 | disposition home or self-care (01) ==
LOC: SUPCPDRO 15:37 → UCCORT 15:37
DX: L91.8 Other hypertrophic disorders of the skin (principal)
CPT/HCPCS: 99212; G0463